=== PATIENT | male | born 1960 | race African-American/Black ===

== ENCOUNTER 2024-12-20 15:49 | Emergency (ER) | payer OTHER, SELFPAY ==
[2024-12-20] VITALS (10 sets, daily range): BP systolic 106–136; BP diastolic 69–86; PULSE 60–81; RESP 12–20; TEMP 36.4–36.7; O2SAT 92–100; BMI 23.3
--- NOTE | 2024-12-20 15:56 | EKG12_ITS ---
Test Reason : UNRESP Blood Pressure : */* mmHG Vent. Rate : 69 BPM Atrial Rate : 69 BPM P-R Int : 152 ms QRS Dur : 104 ms QT Int : 414 ms P-R-T Axes : 58 -19 29 degrees QTcB Int : 443 ms Normal sinus rhythm Possible Inferior infarct , age undetermined Abnormal ECG Confirmed by MARTIN MACHADO, ARACELI ([id number]), editorial manager WOODY MCDONALD ([id number]) on 12/21/2024 8:16:27 AM Referred By: Confirmed By: ARACELI SALAZAR MD
--- NOTE | 2024-12-20 15:56 | CT_ITS ---
PROCEDURE: BRAIN/HEAD WITHOUT CONTRAST (CTBR), 12/20/2024 REASON FOR EXAM: AMS COMPARISON: None TECHNIQUE: CT head was performed without IV contrast. Multiplanar reformats were generated. IV Contrast: None. FINDINGS: Cerebrum: No visible intracranial hemorrhage, mass, or definite acute territorial infarct. Moderate cerebral volume loss. Mild patchy bilateral supratentorial white matter abnormalities, nonspecific but compatible with chronic microvascular ischemic changes. Cerebellum/brainstem: Unremarkable. Note slight limitation due to beam hardening artifact. Ventricles/extra-axial spaces: Ventriculomegaly proportionate to the degree of volume loss.. Paranasal sinuses/mastoid air cells: Patchy mild opacification of anterior ethmoid air cells. Trace mucosal thickening in the right maxillary sinus.. Scalp/calvarium: Unremarkable. Other: Unremarkable. CT/Brain/Head without Contrast IMPRESSION: 1. No visible intracranial hemorrhage. Mild patchy supratentorial white matter abnormalities, potentially reflecting chronic microvascular ischemic changes however this is not definite in the absence of p riors to confirm stability, technically age indeterminate. If there is persistent concern, recommend MRI. 2. Additional description as above. Reading Location: [id number]
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
[2024-12-20 16:05] LABS: Allen Test Positive; Base Excess -3 mmol/L (-2 to +2); Bicarbonate 22.8 mmol/L (22-26); Blood Gas Specimen Type ART; Mode Not entered; O2 Delivery Device Cannula; PO2 114 mmHG (75-100); SITE L Radial; SO2 98 % (95-99); Total Carbon Dioxide 24 mmol/L; pCO2 43.8 mmHg (35-45); pH 7.33 (7.35-7.45)
[2024-12-20 16:09] LABS: Absolute Lymphocyte Count 2.79 X10^3/uL (0.83-4.51); Basophil# 0.02 X10^3/uL; Basophil% 0.4 % (0-1); Eosinophil# 0.18 X10^3/uL; Eosinophils% 3.2 % (0-5); Hematocrit 41.8 % (40-54); Hemoglobin 14.2 g/dL (13.0-16.5); Lymphocyte # 2.79 X10^3/ul (0.83-4.51); Lymphocyte % 49.9 % (19-41); Mean Corpuscular Hgb 30.7 pg (27.0-32.0); Mean Corpuscular Volume 90.5 fL (80-94); Mean Platelet Vol. 9.5 fl (6.2-12.0); Monocyte# 0.57 X10^3/uL; Monocyte% 10.2 % (0-10); NRBC Flagged by Analyzer 0 % (0-5); Neutrophil # 2.02 X10^3/uL (2.7-7.7); Neutrophil % 36.1 % (47-70); Platelet Count 218 K/mm3 (150-450); RBC Distribution Width CV 13.5 % (11.6-14.6); RBC Distribution Width SD 45.1 fl (35.1-43.9); Red Blood Count 4.62 M/mm3 (4.6-6.2); White Blood Count 5.6 K/mm3 (4.4-11.0)
[2024-12-20 16:18] LABS: Prothrombin Time (Protime)PT. 12.9 SECONDS (11.7-14.9)
[2024-12-20 16:23] LABS: Mucous, Urine 0 SEEN /hpf (<or=2+)
[2024-12-20 16:28] LABS: Color, Urine Yellow (Yellow); Glucose, Dipstick Normal (Normal); Ketone-Dipstick Negative (Negative); Leukocyte Esterase-Dipstick Negative /ul (Negative); Nitrite-Dipstick Negative (Negative); Occult Blood-Urine 10 /ul (Negative); Protein-Dipstick Negative (Negative); Specific Gravity, Urine 1.005 (1.002-1.030); Urine Bilirubin Dipstick Negative (Negative); Urine Clarity Clear (Clear); Urine Urobilinogen Normal (Normal)
[2024-12-20 16:37] LABS: AST(SGOT) 20 U/L (<=37); Alanine Aminotransfer ALT/SGPT 11 U/L (<=46); Albumin, Serum 3.8 g/dL (3.4-4.8); Alkaline Phosphatase 73 U/L (40-129); Anion Gap 12 (5-15); BUN 8 mg/dL (4-19); BUN/Creat Ratio 8.3 RATIO (10-20); Bilirubin, Direct 0.09 mg/dL (0.00-0.30); Calcium,Total 8.6 mg/dL (7.6-11.0); Carbon Dioxide 21.1 mmol/L (21.0-32.0); Chloride 103 mmol/L (98-108); Creatinine, Serum 0.94 mg/dL (0.70-1.20); EST Glomerular Filtration Rate 88 (>60); Estimated Creatinine Clearance 80.26 ml/min (50-250); Globulin 3.4 g/dL (2.2-4.2); Glucose 102 mg/dL (70-99); Lactic Acid 2.1 mmol/L (0.0-2.0); Lipase 53 U/L (13-75); Magnesium 2.4 mg/dL (1.5-2.2); Potassium 3.6 mmol/L (3.3-5.1); Protein, Total 7.1 g/dL (5.9-8.4); Sodium Level 136 mmol/L (133-145); Troponin T High Sensitivity 6 ng/L (<=22)
--- NOTE | 2024-12-20 16:40 | RAD_ITS ---
PROCEDURE: CHEST 1 VIEW (PORTABLE) (RADCXPA_P), 12/20/2024 REASON FOR EXAM: UNRESPONSIVE TECHNIQUE: PA and lateral views of the chest were obtained. COMPARISON: None FINDINGS: Heart: Unremarkable. Mediastinum: Mild central vascular prominence. Lungs/pleura: Hypoinflation with vascular crowding. Suspect mild airspace disease in the right lung base. Trace basilar interstitial prominence. No sizeable pleural effusion or visible pneumothorax. Bones: Suspect demineralization. Lines and support devices: None. RAD/Chest 1 View (Portable) IMPRESSION: 1. Limited hypoinflated exam. Mild right basilar airspace disease, atelectasis /scarring versus mild pneumonia. Follow-up to radiographic resolution. 2. Trace basilar interstitial prominence may reflect minimal edema/pneumonitis or a chronic interstitial abnormality in the absence of priors. 3. Additional description as above. Reading Location: [id number]
[2024-12-20 16:56] LABS: Amphetamine Urine NEGATIVE (<1000 ng/mL); Barbiturate Urine NEGATIVE (< 200 ng/mL); Benzodiazepine Urine NEGATIVE (< 200 ng/mL); Buprenorphine Urine NEGATIVE (< 200 ng/mL); Cocaine Urine NEGATIVE (< 300 ng/mL); Fentanyl, Urine NEGATIVE; Methadone Urine NEGATIVE (< 300 ng/mL); Opiates Urine NEGATIVE (< 300 ng/mL); Oxycodone, Urine NEGATIVE (< 100 ng/mL); PCP Urine NEGATIVE (< 25 ng/mL); THC Urine NEGATIVE (< 50 ng/mL)
[2024-12-20 17:30] LABS: Bacteria RARE /hpf (None Seen); Red Blood Cells-Urine 0-5 SEEN /hpf (0-5); Squamous Epithelial Cells - UA 0-5 SEEN /hpf (0-5); Transitional Epithelial - Ur 0-5 SEEN /hpf (0-5); White Blood Cells 0-5 SEEN /hpf (0-5)
--- NOTE | 2024-12-20 19:27 | ED.RN ---
Walked into room to pt standing at side of bed between the siderail and the bed urinating on the floor.
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
--- NOTE | 2024-12-21 00:46 | ED.RN ---
Assessment at time of discharge.
== END 2024-12-21 00:47 | disposition home or self-care (01) ==
PROVIDERS: Emergency Provider Emergency Medicine; Visit Provider Emergency Medicine
DX: F10.129 Alcohol abuse with intoxication, unspecified (principal); Z59.00 Homelessness unspecified; R40.4 Transient alteration of awareness
CPT/HCPCS: 36600; 70450; 71045; 80048; 80076; 80307; 81001; 82077; 82803; 83605; 83690; 83735; 84484; 85025; 85610; 85730; 93005; 99285; P9612; A4216

== ENCOUNTER 2025-05-10 15:34 | Emergency (ER) | payer OTHER, SELFPAY ==
[2025-05-10 15:34] VITALS: BP 113/64; PULSE 67; RESP 16; O2SAT 98
[2025-05-10 15:36] VITALS: BP 111/70; PULSE 73; RESP 18; TEMP 36.8; O2SAT 97; BMI 23.6
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
--- NOTE | 2025-05-10 15:49 | CT_ITS ---
PROCEDURE: BRAIN/HEAD WITHOUT CONTRAST 05/10/2025 REASON FOR EXAM: ?HEAD TRAUMA TECHNIQUE: BRAIN/HEAD WITHOUT CONTRAST Coronal and Sagittal reconstruction series were provided. One or more dose reduction techniques were used (e.g., Automated exposure control, adjustment of the mA and/or kV according to patient size, use of iterative reconstruction technique. RADIATION DOSE SUMMARY: CTDlvol: 44.99 mGy DLP: 829.85 mGycm COMPARISON: CT head December 20, 2024. FINDINGS: Brain: Extensive low density in the deep cerebral white matter most likely represents advanced chronic small vessel ischemic disease. No acute intracranial hemorrhage. No mass-effect or midline shift. CSF Spaces: Moderate generalized cerebral atrophy Sinuses/Mastoids: Clear Bones: No acute bony abnormalities. CT/Brain/Head without Contrast IMPRESSION: No acute intracranial abnormalities. Reading Location: [facility]
--- NOTE | 2025-05-10 15:50 | EKG12_ITS ---
Test Reason : FALL Blood Pressure : */* mmHG Vent. Rate : 62 BPM Atrial Rate : 62 BPM P-R Int : 140 ms QRS Dur : 100 ms QT Int : 430 ms P-R-T Axes : 36 -17 -1 degrees QTcB Int : 436 ms Normal sinus rhythm Possible Inferior infarct , age undetermined Abnormal ECG Confirmed by MARTIN MACHADO, AARCELI ([id number]), editor managing newspaper RIZWANA SUAREZ ([id number]) on 05/11/2025 8:34:50 AM Referred By: Confirmed By: ARACELI SALAZAR MD
[2025-05-10] MEDS: 0.9% Normal Saline (1000mL) 1,000 ML 1000 ML IV (15:53)
[2025-05-10 16:10] LABS: Hematocrit 39.8 % (40-54); Hemoglobin 13.4 g/dL (13.0-16.5); Immature Granulocytes Count 0.010 X10^3/uL (0.0-0.0); Mean Corp Hgb Conc 33.7 g/dL (32-36); Mean Corpuscular Volume 91.7 fL (80-94); Mean Platelet Vol. 9.8 fl (6.2-12.0); NRBC Flagged by Analyzer 0 % (0-5); Platelet Count 209 K/mm3 (150-450); RBC Distribution Width CV 13.9 % (11.6-14.6); RBC Distribution Width SD 47.6 fl (35.1-43.9); Red Blood Count 4.34 M/mm3 (4.6-6.2); White Blood Count 5.4 K/mm3 (4.4-11.0)
[2025-05-10 16:34] VITALS: BP 102/64; PULSE 64; RESP 16; O2SAT 97
[2025-05-10 16:40] LABS: AST(SGOT) 20 U/L (<=37); Alanine Aminotransfer ALT/SGPT 8 U/L (<=46); Albumin, Serum 3.4 g/dL (3.4-4.8); Alkaline Phosphatase 60 U/L (40-129); Anion Gap 14 (5-15); BUN 8 mg/dL (4-19); BUN/Creat Ratio 9.9 RATIO (10-20); Calcium,Total 8.5 mg/dL (7.6-11.0); Carbon Dioxide 17.9 mmol/L (21.0-32.0); Chloride 104 mmol/L (98-108); Estimated Creatinine Clearance 94.95 ml/min (50-250); Globulin 3.2 g/dL (2.2-4.2); Glucose 86 mg/dL (70-99); Potassium 3.8 mmol/L (3.3-5.1)
[2025-05-10 17:00] VITALS: BP 126/72; PULSE 64; RESP 16; O2SAT 100
--- NOTE | 2025-05-10 17:44 | CM.ED ---
Social Work SW attempted to meet with patient, patient unable to maintain a conversation. Patient was able to tell SW that he lives with his daughter and that his daughters name is Svetlana. Patient was unable to tell FRANCOIS Luis phone number or address. Patient will attempt conversation again at a later time. Evie Bonilla, PUBLIC AFFAIRS SPECIALIST, RESOURCING CONSULTANT
[2025-05-10 18:00] VITALS: BP 102/59; PULSE 66; RESP 16; O2SAT 99
--- NOTE | 2025-05-10 19:04 | ED.RN ---
PT WALKED OUT OF ER ROOM. ASKED TO LEAVE. DR. SUTTON ASSESSED PT AND APPROVED PT. TO LEAVE. PT DID NOT WANT HIS D/C PAPERS. AMBULATED OUT OF DEPT WITHOUT TROUBLE.
--- OUTSIDE RECORDS SUMMARY | 2025-05-10 19:42 | XMS RPT_ITS | CCD ---
Author Organization [facility] ion Partnership [facility] Care Team Providers Care Schedule Manager Name Role Phone TREVOR BHATT Attending Unavailable Unavailable Primary Care Provider VIN Aburto Referring [facility], [place] Primary Care Unavailable Kale Kitchen Attending Unavailable Dr. Kale Kitchen DO Emergency Provider [phone] [facility], [place] Primary Care Provider [place], [place] Primary Care Provider [facility] Dr. Karel Fuentes DO Emergency Provider Allergies Allergy Classification Reported Allergen(s) Allergy Type Date of Onset Reaction(s) Facility (1 source) Unable to Assess Drug allergy (disorder) 12-20-2024 [facility] Repository Problems Problem Classification Problem Date Documented Da te Episodic/Chronic Alcohol-related disorders (2 sources) Alcohol intoxication; Translations: [Alcohol use, unspecified with intoxication, unspecified] 12-20-2024 Episodic Residual codes; unclassified (1 source) Transient alteration of awareness; Translations: [Transient alteration of awareness] Onset: 12-29-2024 Episodic Residual codes; unclassified (2 sources) Unresponsive ; Translations: [Transient alteration of awareness] 12-20-2024 Episodic Unclassified (1 source) for help with your alcohol problem Results Test Name Value Interpretation Reference Range Facility Absolute lymphocyte countOrd ered By: Karel Fuentes on 05-10-2025 Lymphocytes Auto (Unsp spec) [#/Vol] 2.29 10*3/uL 0.83-4.51 [facility] Absolute neutrophil countOrd ered By: Karel Fuentes on 05-10-2025 Neutrophils (Bld) [#/Vol] 2.3 10*3/uL 2.0-7.7 [facility] Anion gap in Serum or Plasma Ordered By: Karel Fuentes on 05-10-2025 Anion gap [Moles/Vol] 14 mmol/L 5-[address] [facility] Automated lymphocyte count a s percentage of total leukocytesOrdered By: Karel Fuentes on 05-10-2025 Lymphocytes/100 WBC Auto (Unsp spec) 42.8 % High 19-41 [facility] BUN/creatinine ratioOrdered By: Karel Fuentes on 05-10-2025 Urea nitrogen/Creatinine [Mass ratio] 9.9 mg/mg Low 10-20 [facility] Basophil percentageOrdered B y: Karel Fuentes on 05-10-2025 Basophils/100 WBC (Bld) 0.6 % 0-1 [facility] Bilirubin, totalOrdered By: Karel Fuentes on 05-10-2025 Bilirubin [Mass/Vol] 0.30 mg/dL 0.00-1.30 [facility] Carbon dioxide, total [Moles /volume] in Central venous bloodOrdered By: Karel Fuentes on 05-10-2025 CO2 [Moles/Vol] 17.9 mmol/L Low 21.0-32.0 [facility] Chloride assayOrdered By: delmy Fuentes on 05-10-2025 Chloride [Moles/Vol] 104 mmol/L 98-108 [facility] Eosinophil percentageOrdered By: Karel Fuentes on 05-10-2025 Eosinophils/100 WBC (Bld) 3.4 % 0-5 [facility] Erythrocyte distribution wid th ratioOrdered By: Karel Fuentes on 05-10-2025 Erythrocyte distribution width (RBC) [Ratio] 13.9 % 11.6-14.6 [facility] Erythrocyte distribution wid th standard deviationOrdered By: Karel Fuentes on 05-10-2025 Erythrocyte distribution width (RBC) [Ratio] 47.6 fl High 35.1-43.9 [facility] Glomerular filtration rate ( GFR) estimation/1.73 sq m using serum, plasma, or whole bOrdered By: Karel Fuentes on 05-10-2025 GFR/1.73 sq M.predicted among non-blacks MDRD (S/P/Bld) [Vol rate/Area] 96 mL/min/{1.73_m2} >60 [facility] Comment on above: mL/min/1.73m2 CKD-EP I Creatinine Equation (2020) Hematocrit Auto (Bld) [Volum e fraction]Ordered By: Karel Fuentes on 05-10-2025 Hematocrit (Bld) [Volume fraction] 39.8 % Low 40-54 [facility] Hemoglobin measurementOrdere d By: Karel Fuentes on 05-10-2025 Hemoglobin (Bld) [Mass/Vol] 13.4 g/dL 13.0-16.5 [facility] Immature granulocytes/100 WB C Auto (Bld)Ordered By: Karel Fuentes on 05-10-2025 Immature granulocytes/100 WBC (Bld) 0.200 % 0.0-0.9 [facility] Comment on above: IG% - Immature Granu locytes (promyelocytes, myelocytes and metamyelocytes) > 1% indicates that a LEFT SHIFT is Present. Laboratory - Chemistry and C hemistry - challengeOrdered By: Karel Fuentes on 05-10-2025 AST [Catalytic activity/Vol] 20 U/L <38 [facility] MCV (mean corpuscular volume ) determinationOrdered By: Karel Fuentes on 05-10-2025 MCV (RBC) [Entitic vol] 91.7 fL 80-94 [facility] Mean corpuscular hemoglobin (MCH) determinationOrdered By: Karel Fuentes on 05-10-2025 MCH (RBC) [Entitic mass] 30.9 pg 27.0-32.0 [facility] Mean corpuscular hemoglobin concentration (MCHC) determinationOrdered By: Karel Fuentes on 05-10-2025 MCHC (RBC) [Mass/Vol] 33.7 g/dL 32-[address] [facility] Mean platelet volume determi nationOrdered By: Karle Fuentes on 05-10-2025 Platelet mean volume (Bld) [Entitic vol] 9.8 fL 6.2-12.0 [facility] Monocyte percentageOrdered B y: Karel Fuentes on 05-10-2025 Monocytes/100 WBC (Bld) 10.8 % High 0-10 [facility] Neutrophil percentageOrdered By: Karel Fuentes on 05-10-2025 Neutrophils/100 WBC (Bld) 42.2 % Low 47-70 [facility] Nucleated red blood cell per centageOrdered By: Karel Fuentes on 05-10-2025 Nucleated RBC/100 WBC (Bld) [Ratio] 0 % 0-5 [facility] Platelet countOrdered By: Antonio Fuentes on 05-10-2025 Platelets (Bld) [#/Vol] 209 10*3/uL 150-450 [facility] Potassium measurement (mass/ volume)Ordered By: Karel Fuentes on 05-10-2025 Potassium (Unsp spec) [Mass/Vol] 3.8 mmol/L 3.3-5.1 [facility] RBC Auto (Bld) [#/Vol]Ordere d By: Karel Fuentes on 05-10-2025 RBC (Bld) [#/Vol] 4.34 10*6/uL Low 4.6-6.2 [facility] Serum creatinine measurement (mass/volume)Ordered By: Karel Fuentes on 05-10-2025 Creatinine [Mass/Vol] 0.84 mg/dL 0.70-1.[address] [facility] Serum globulin measurementOr dered By: Karel Fuentes on 05-10-2025 Globulin (S) [Mass/Vol] 3.2 g/dL 2.2-4.2 [facility] Serum glucose measurement (m ass/volume)Ordered By: Karel Fuentes on 05-10-2025 Glucose [Mass/Vol] 86 mg/dL 70-99 [facility] Serum or plasma alanine travis otransferase (ALT) measurementOrdered By: Karel Fuentes on 05-10-2025 ALT [Catalytic activity/Vol] 8 U/L <47 [facility] Serum or plasma albumin juanito urement (mass/volume)Ordered By: Karel Fuentes on 05-10-2025 Albumin [Mass/Vol] 3.4 g/dL 3.4-4.8 [facility] Serum or plasma albumin/glob ulin mass ratioOrdered By: Karel Fuentes on 05-10-2025 Albumin/Globulin [Mass ratio] 1.1 {ratio} 0.9-2.4 [facility] Serum or plasma alkaline phoenix sphatase measurementOrdered By: Karel Fuentes on 05-10-2025 ALP [Catalytic activity/Vol] 60 U/L 40-129 [facility] Serum or plasma calcium juanito urement (mass/volume)Ordered By: Karel Fuentes on 05-10-2025 Calcium [Mass/Vol] 8.5 mg/dL 7.6-11.0 [facility] Serum or plasma urea nitroge n measurement (mass/volume)Ordered By: Karel Fuentes on 05-10-2025 Urea nitrogen [Mass/Vol] 8 mg/dL 4-19 [facility] Sodium levelOrdered By: Nelsy Fuentes on 05-10-2025 Sodium [Moles/Vol] 135 mmol/L 133-145 [facility] Total proteinOrdered By: Wilbert Fuentes on 05-10-2025 Protein [Mass/Vol] 6.6 g/dL 5.9-8.4 [facility] White blood cell (WBC) count Ordered By: Karel Fuentes on 05-10-2025 WBC (Bld) [#/Vol] 5.4 10*3/uL 4.4-11.0 [facility] 12 Lead EKGon 12-20-2024 12 Lead EKG [facility] Cardiovascular Services [address] [place] [address] 12 Lead EKG 12/20/24 1604 MR#: [id number] Acct: [id number] Name: MERA PENA Rep #: [id number] : 1960 64 From: Gurdeep Francisco MD Attending Dr: Status: DEP ER Ordering Dr: Kale Kitchen DO Date: 12/20/24 Location: ED Sex: M AA Admitted: Test Reason : UNRESP Blood Pressure : */* mmHG Vent. Rate : 69 BPM Atrial Rate : 69 BPM P-R Int : 152 ms QRS Dur : 104 ms QT Int : 414 ms P-R-T Axes : 58 -19 29 degrees QTcB Int : 443 ms Normal sinus rhythm Possible Inferior infarct , age undetermined Abnormal ECG Confirmed by MARTIN MACHADO, GURDEEP ([id number]), newspaper copy editor WOODY MCDONALD ([id number]) on 12/21/2024 8:16:27 AM Referred By: Confirmed By: GURDEEP FRANCISCO MD 12/21/24 0816 Date Gurdeep Francisco MD CC: Dr. Kale Kitchen, DO; [facility] Signed Normal [facility] Absolute neutrophil countOrd ered By: Kale Kitchen on 12-20-2024 Neutrophils (Bld) [#/Vol] 2.0 10*3/uL 2.0-7.7 [facility] Alcohol, Blood (Medical)-Ser umon 12-20-2024 SERUM ETOH 256.0 mg/dL High <=10.0 [facility] Comment on above: Result Comment: This test is for medical purposes only. The legal definition of intoxication varies according to local law. Performed By: #### L 501.9100 ####[facility] [address] [facility] [place], [place], [id number] SERUM ETOH 401.0 mg/dL Invalid Interpretation Code <=10.0 [facility] Comment on above: Result Comment: Crit ical Result(s) Called [facility] at: 1706 by: FRAN??Results read back by same. This test is for medical purposes only. The legal definition of intoxication varies according to local law. Performed By: #### L 501.5200, L500.2500, L300.4310, L501.4021, L300.3900, L500.3400, L503.6005, L501.2450, L501.9100, L505.5000, L100.0100 ####[facility] [address] [place], [place], [id number] Amphetamines Screen method > 1000 ng/mL Ql (U)Ordered By: Kale Kitchen on 12-20-2024 Amphetamines Ql (U) Negative <1000 ng/mL [facility] Urine Barbiturates Screen Negative < 200 ng/mL [facility] Anion gap in Serum or Plasma Ordered By: Kale Kitchen on 12-20-2024 Anion gap [Moles/Vol] 12 mmol/L 5- [facility] Arterial patency Wrist arter y --pre arterial punctureOrdered By: Kale Kitchen on 12-20-2024 Jeramy Test Positive [facility] BUN/creatinine ratioOrdered By: Kale Kitchen on 12-20-2024 Urea nitrogen/Creatinine [Mass ratio] 8.3 mg/mg Low 10- [facility] Bacteria LM.HPF (Urine sed) [#/Area]Ordered By: Kale Kitchen on 12-20-2024 Urine Bacteria RARE /hpf None Seen [facility] Base excess Calc (BldV) [Mol es/Vol]Ordered By: Kale Kitchen on 12-20-2024 Blood Gas Base Excess -3 mmol/L Low -2-[address] [facility] Basic Metabolic Profile (BMP )on 12-20-2024 BUN/CRE 8.3 RATIO Low 07-25 [facility] Comment on above: Performed By: #### L 501.5200, L500.2500, L300.4310, L501.4021, L300.3900, L500.3400, L503.6005, L501.2450, L501.9100, L505.5000, L100.0100 #### [facility] [address] [place], [place], [id number] ECRCL 80.26 ml/min Normal 50-250 [facility] Comment on above: Performed By: #### L 501.5200, L500.2500, L300.4310, L501.4021, L300.3900, L500.3400, L503.6005, L501.2450, L501.9100, L505.5000, L100.0100 #### [facility] [address] [place], [place], [id number] GAP 12 Normal - [facility] Comment on above: Performed By: #### L 501.5200, L500.2500, L300.4310, L501.4021, L300.3900, L500.3400, L503.6005, L501.2450, L501.9100, L505.5000, L100.0100 #### [facility] [address] [place], [place], [id number] GFR/1.73 sq M.predicted among non-blacks MDRD (S/P/Bld) [Vol rate/Area] 88 mL/min/{1.73_m2} Normal >60 [facility] Comment on above: Result Comment: mL/m in/1.73m2 CKD-EPI Creatinine Equation (2020) Performed By: #### L 501.5200, L500.2500, L300.4310, L501.4021, L300.3900, L500.3400, L503.6005, L501.2450, L501.9100, L505.5000, L100.0100 #### [facility] [address] [place], [address] Basic Metabolic Profile (BMP )Ordered By: Kale Kitchen on 12-20-2024 Calcium [Mass/Vol] 8.6 mg/dL Normal 7.6-11.0 [facility] Comment on above: Performed By: #### L 501.5200, L500.2500, L300.4310, L501.4021, L300.3900, L500.3400, L503.6005, L501.2450, L501.9100, L505.5000, L100.0100 #### [facility] [address] [place], [place], [id number] Chloride [Moles/Vol] 103 mmol/L Normal 98-108 [facility] Comment on above: Performed By: #### L 501.5200, L500.2500, L300.4310, L501.4021, L300.3900, L500.3400, L503.6005, L501.2450, L501.9100, L505.5000, L100.0100 #### [facility] [address] [place], [address] CO2 [Moles/Vol] 21.1 mmol/L Normal 21.0-32.0 [facility] Comment on above: Performed By: #### L 501.5200, L500.2500, L300.4310, L501.4021, L300.3900, L500.3400, L503.6005, L501.2450, L501.9100, L505.5000, L100.0100 #### [facility] [address] [place], [address] Creatinine [Mass/Vol] 0.94 mg/dL Normal 0.70-1.[address] [facility] Comment on above: Performed By: #### L 501.5200, L500.2500, L300.4310, L501.4021, L300.3900, L500.3400, L503.6005, L501.2450, L501.9100, L505.5000, L100.0100 #### [facility] [address] [place], [address] Glucose [Mass/Vol] 102 mg/dL High 70-99 [facility] Comment on above: Performed By: #### L 501.5200, L500.2500, L300.4310, L501.4021, L300.3900, L500.3400, L503.6005, L501.2450, L501.9100, L505.5000, L100.0100 #### [facility] [address] [place], [address] Potassium [Moles/Vol] 3.6 mmol/L Normal 3.3-5.[address] [facility] Comment on above: Performed By: #### L 501.5200, L500.2500, L300.4310, L501.4021, L300.3900, L500.3400, L503.6005, L501.2450, L501.9100, L505.5000, L100.0100 #### [facility] [address] [place], [address] Sodium [Moles/Vol] 136 mmol/L Normal 133-145 [facility] Comment on above: Performed By: #### L 501.5200, L500.2500, L300.4310, L501.4021, L300.3900, L500.3400, L503.6005, L501.2450, L501.9100, L505.5000, L100.0100 #### [facility] [address] [place], [address] Urea nitrogen [Mass/Vol] 8 mg/dL Normal 4-19 [facility] Comment on above: Performed By: #### L 501.5200, L500.2500, L300.4310, L501.4021, L300.3900, L500.3400, L503.6005, L501.2450, L501.9100, L505.5000, L100.0100 #### [facility] [address] [place], [address] Bilirubin Test strip Ql (U)O rdered By: Kale Kitchen on 12-20-2024 Bilirubin Ql (U) Negative Negative [facility] Positive Normal [facility] Comment on above: Performed By: #### L 9000.0800 #### [facility] [address] [place], [address] Base excess Calc (Bld) [Moles/Vol] -3 mmol/L Low -2 to +2 [facility] Comment on above: Performed By: #### L 9000.0800 #### [facility] [address] [place], [address] Blood Gas Type ART Normal [facility] Comment on above: Performed By: #### L 9000.0800 #### [facility] [address] [place], [address] CO2 [Moles/Vol] 24 mmol/L Normal [facility] Comment on above: Performed By: #### L 9000.0800 #### [facility] [address] [place], [address] FI02 2.0 Normal [facility] Comment on above: Performed By: #### L 9000.0800 #### [facility] [address] [place], [address] HCO3 (Bld) [Moles/Vol] 22.8 mmol/L Normal 22-26 [facility] Comment on above: Performed By: #### L 9000.0800 #### [facility] [address] [place], [address] Mode Not entered Normal [facility] Comment on above: Performed By: #### L 9000.0800 #### [facility] [address] [place], [address] O2 Delivery Dev Cannula Normal [facility] Comment on above: Performed By: #### L 9000.0800 #### [facility] [address] [place], [address] pCO2 43.8 mmHg Normal 35-45 [facility] Comment on above: Performed By: #### L 9000.0800 #### [facility] [address] [place], [address] pH (Bld) 7.33 [pH] Low 7.35-7.45 [facility] Comment on above: Performed By: #### L 9000.0800 #### [facility] [address] [place], [address] PO2 114 mmHG High 75-100 [facility] Comment on above: Performed By: #### L 9000.0800 #### [facility] [address] [place], [address] SITE L Radial Normal [facility] Comment on above: Performed By: #### L 9000.0800 #### [facility] [address] [place], [address] SO2 98 Normal 95-99 [facility] Comment on above: Performed By: #### L 9000.0800 #### [facility] [address] [place], [address] Blood bicarbonate measuremen tOrdered By: Kale Kitchen on 12-20-2024 Blood Gas Bicarbonate Actual 22.8 mmol/L [facility] Brain/Head without Contrasto n 12-20-2024 Brain/Head without Contrast [facility] Imaging Services [address] [place] [address] Brain/Head without Contrast MR#: [id number] Acct: [id number] Name: MERA PENA Rep #: [id number] : 1960 M 64 From: Hira Rosado MD PCP: Care Physician,No Primary Status: REG ER Study: Brain/Head without Contrast Date of Exam: 12/04 04/29 Exam# [id number] Ordering Dr: Kale Kitchen DO PROCEDURE: BRAIN/HEAD WITHOUT CONTRAST (CTBR), 12/20/2024 REASON FOR EXAM: AMS COMPARISON: None TECHNIQUE: CT head was performed without IV contrast. Multiplanar reformats were generated. IV Contrast: None. FINDINGS: Cerebrum: No visible intracranial hemorrhage, mass, or definite acute territorial infarct. Moderate cerebral volume loss. Mild patchy bilateral supratentorial white matter abnormalities, nonspecific but compatible with chronic microvascular ischemic changes. Cerebellum/brainstem : Unremarkable. Note slight limitation due to beam hardening artifact. Ventricles/extra-axi al spaces: Ventriculomegaly proportionate to the degree of volume loss.. Paranasal sinuses/mastoid air cells: Patchy mild opacification of anterior ethmoid air cells. Trace mucosal thickening in the right maxillary sinus.. Scalp/calvarium: Unremarkable. Other: Unremarkable. CT/Brain/Head without Contrast IMPRESSION: 1. No visible intracranial hemorrhage. Mild patchy supratentorial white matter abnormalities, potentially reflecting chronic microvascular ischemic changes however this is not definite in the absence of priors to confirm stability, technically age indeterminate. If there is persistent concern, recommend MRI. 2. Additional description as above. Reading Location: [facility] CC: Dr. Kale Kitchen, DO; No Primary Care Physician Supervisor Plasma: Signed Normal [facility] CBC W/Diff, Automatedon 12-04 Absolute Lymph 2.79 X10 3/uL Normal 0.83-4.51 [facility] Comment on above: Performed By: #### L 501.5200, L500.2500, L300.4310, L501.4021, L300.3900, L500.3400, L503.6005, L501.2450, L501.9100, L505.5000, L100.0100 #### [facility] [address] [place], [place], [id number] Absolute Neut 2.0 X10 3/uL Normal 2.0-7.7 [facility] Comment on above: Performed By: #### L 501.5200, L500.2500, L300.4310, L501.4021, L300.3900, L500.3400, L503.6005, L501.2450, L501.9100, L505.5000, L100.0100 #### [facility] [address] [facility] [place], [place], [id number] IG% 0.200 Normal 0.0-0.9 [facility] Comment on above: Result Comment: IG% - Immature Granulocytes (promyelocytes, myelocytes and metamyelocytes) > 1% indicates that a LEFT SHIFT is Present. Performed By: #### L 501.5200, L500.2500, L300.4310, L501.4021, L300.3900, L500.3400, L503.6005, L501.2450, L501.9100, L505.5000, L100.0100 #### [facility] [address] [place], [address] Nucleated RBC (Bld) [#/Vol] 0 10*3/uL Normal 0-5 [facility] Comment on above: Performed By: #### L 501.5200, L500.2500, L300.4310, L501.4021, L300.3900, L500.3400, L503.6005, L501.2450, L501.9100, L505.5000, L100.0100 #### [facility] [address] [place], [address] RDW SD 45.1 fl High 35.1-43.9 [facility] Comment on above: Performed By: #### L 501.5200, L500.2500, L300.4310, L501.4021, L300.3900, L500.3400, L503.6005, L501.2450, L501.9100, L505.5000, L100.0100 #### [facility] [address] [place], [address] CBC W/Diff, AutomatedOrdered By: Kale Kitchen on 12-20-2024 Basophils/100 WBC (Bld) 0.4 % Normal 0-1 [facility] Comment on above: Performed By: #### L 501.5200, L500.2500, L300.4310, L501.4021, L300.3900, L500.3400, L503.6005, L501.2450, L501.9100, L505.5000, L100.0100 #### [facility] [address] [place], [place], [id number] (964) Eosinophils/100 WBC (Bld) 3.2 % Normal 0-5 [facility] Comment on above: Performed By: #### L 501.5200, L500.2500, L300.4310, L501.4021, L300.3900, L500.3400, L503.6005, L501.2450, L501.9100, L505.5000, L100.0100 #### [facility] [address] [facility] [place], [address] ( Erythrocyte distribution width (RBC) [Ratio] 13.5 % Normal 11.6-14.6 [facility] Comment on above: Performed By: #### L 501.5200, L500.2500, L300.4310, L501.4021, L300.3900, L500.3400, L503.6005, L501.2450, L501.9100, L505.5000, L100.0100 #### [facility] [address] [facility] [place], [address] Hematocrit (Bld) [Volume fraction] 41.8 % Normal 40-54 [facility] Comment on above: Performed By: #### L 501.5200, L500.2500, L300.4310, L501.4021, L300.3900, L500.3400, L503.6005, L501.2450, L501.9100, L505.5000, L100.0100 #### [facility] [address] [place], [address] ( Hemoglobin (Bld) [Mass/Vol] 14.2 g/dL Normal 13.0-16.5 [facility] Comment on above: Performed By: #### L 501.5200, L500.2500, L300.4310, L501.4021, L300.3900, L500.3400, L503.6005, L501.2450, L501.9100, L505.5000, L100.0100 #### [facility] [address] [facility] [place], [address] Lymphocytes/100 WBC (Bld) 49.9 % High 19-41 [facility] Comment on above: Performed By: #### L 501.5200, L500.2500, L300.4310, L501.4021, L300.3900, L500.3400, L503.6005, L501.2450, L501.9100, L505.5000, L100.0100 #### [facility] [address] [place], [address] MCH (RBC) [Entitic mass] 30.7 pg Normal 27.0-32.0 [facility] Comment on above: Performed By: #### L 501.5200, L500.2500, L300.4310, L501.4021, L300.3900, L500.3400, L503.6005, L501.2450, L501.9100, L505.5000, L100.0100 #### [facility] [address] [place], [address] MCHC (RBC) [Mass/Vol] 34.0 g/dL Normal 32-[address] [facility] Comment on above: Performed By: #### L 501.5200, L500.2500, L300.4310, L501.4021, L300.3900, L500.3400, L503.6005, L501.2450, L501.9100, L505.5000, L100.0100 #### [facility] [address] [place], [address] MCV (RBC) [Entitic vol] 90.5 fL Normal 80-94 [facility] Comment on above: Performed By: #### L 501.5200, L500.2500, L300.4310, L501.4021, L300.3900, L500.3400, L503.6005, L501.2450, L501.9100, L505.5000, L100.0100 #### [facility] [address] [place], [address] Monocytes/100 WBC (Bld) 10.2 % High 0-10 [facility] Comment on above: Performed By: #### L 501.5200, L500.2500, L300.4310, L501.4021, L300.3900, L500.3400, L503.6005, L501.2450, L501.9100, L505.5000, L100.0100 #### [facility] [address] [place], [address] Neutrophils/100 WBC (Bld) 36.1 % Low 47-70 [facility] Comment on above: Performed By: #### L 501.5200, L500.2500, L300.4310, L501.4021, L300.3900, L500.3400, L503.6005, L501.2450, L501.9100, L505.5000, L100.0100 #### [facility] [address] [place], [address] Platelet mean volume (Bld) [Entitic vol] 9.5 fL Normal 6.2-12.0 [facility] Comment on above: Performed By: #### L 501.5200, L500.2500, L300.4310, L501.4021, L300.3900, L500.3400, L503.6005, L501.2450, L501.9100, L505.5000, L100.0100 #### [facility] [address] [place], [address] Platelets (Bld) [#/Vol] 218 10*3/uL Normal 150-450 [facility] Comment on above: Performed By: #### L 501.5200, L500.2500, L300.4310, L501.4021, L300.3900, L500.3400, L503.6005, L501.2450, L501.9100, L505.5000, L100.0100 #### [facility] [address] [place], [address] RBC (Bld) [#/Vol] 4.62 10*6/uL Normal 4.6-6.2 [facility] Comment on above: Performed By: #### L 501.5200, L500.2500, L300.4310, L501.4021, L300.3900, L500.3400, L503.6005, L501.2450, L501.9100, L505.5000, L100.0100 #### [facility] [address] [facility] [place], [address] WBC (Bld) [#/Vol] 5.6 10*3/uL Normal 4.4-11.0 [facility] Comment on above: Performed By: #### L 501.5200, L500.2500, L300.4310, L501.4021, L300.3900, L500.3400, L503.6005, L501.2450, L501.9100, L505.5000, L100.0100 #### [facility] [address] [place], [place], [address] Chest 1 View (Portable)on Chest 1 View (Portable) [facility] Imaging Services [address] [place], [place] [address] Chest 1 View (Portable) MR#: [id number] Acct: [id number] Name: MERA PENA Rep #: [id number] : 1960 M 64 From: Hira Rosado MD PCP: Care Physician,No Primary Status: [facility] Study: Chest 1 View (Portable) Date of Exam: 12/20/24 Exam# [id number] Ordering Dr: Kale Kitchen DO PROCEDURE: CHEST 1 VIEW (PORTABLE) (RADCXPA_P), 12/20/2024 REASON FOR EXAM: UNRESPONSIVE TECHNIQUE: PA and lateral views of the chest were obtained. COMPARISON: None FINDINGS: Heart: Unremarkable. Mediastinum: Mild central vascular prominence. Lungs/pleura: Hypoinflation with vascular crowding. Suspect mild airspace disease in the right lung base. Trace basilar interstitial prominence. No sizeable pleural effusion or visible pneumothorax. Bones: Suspect demineralization. Lines and support devices: None. RAD/Chest 1 View (Portable) IMPRESSION: 1. Limited hypoinflated exam. Mild right basilar airspace disease, atelectasis/scarring versus mild pneumonia. Follow-up to radiographic resolution. 2. Trace basilar interstitial prominence may reflect minimal edema/pneumonitis or a chronic interstitial abnormality in the absence of priors. 3. Additional description as above. Reading Location: [id number] CC: Dr. Kale Kitchen DO; No Primary Care Physician Supervisor Plasma: Signed Normal [facility] Determination of fraction of inspired oxygenOrdered By: Kale Kitchen on 12-20-2024 Blood Gas Oxygen Percent 2.0 [facility] Emergency Department Summary on 12-20-2024 Emergency Department Summary [facility] Medical Records Department [address] [place] [address] Emergency Department Summary 12/20/24 MR#: [id number] Acct: [id number] Name: BECKY PALACIOSHODAMARY Rep #: [id number] : 1960 64 From: Kale Kitchne DO PCP: [facility] Status:REG ER Location: ED HPI History of Present Illness Chief Complaint: Unresponsive Informant: EMS Narrative Narrative: Unresponsive unknown male brought to the emergency department by EMS. Patient was found on the ground outside of a local liquor store. Prehospital EKG shows a sinus rhythm. EMS notes that he was unresponsive to sternal rub for them. They attempted Narcan with no change in mental status. He has no wallet with him. Police on scene did not know the individual's name. EMS notes no outward signs of trauma. PFSH PFSH Medical History unable to obtain unable to obtain Allergy/AdvReac Type Severity Reaction Status Date / Time Unable to Assess Allergy Verified 12/20/24 15:50 Family History unable to obtain unable to obtain Surgical History unable to obtain unable to obtain Social History Smoking Status: Unknown if ever smoked Homelessness:: Unspecified ROS ROS ED Review of Systems ROS Unobtainable: due to mental status EXAM Physical Exam Const Vital Signs: 12/20/24 15:51 12/20/24 15:55 12/20/24 16:50 Temperature 98.1 F Temperature Source Temporal Pulse Rate 75 Respiratory Rate 12 Respiratory Effort Normal Respiratory Pattern Normal Blood Pressure 136/85 H 131/86 H Blood Pressure Mean 102 101 Pulse Ox 99 Oxygen Delivery Method 12/20/24 17:00 12/20/24 17:30 Temperature 97.6 F L Temperature Source Temporal Pulse Rate 81 62 Respiratory Rate 17 18 Respiratory Effort Respiratory Pattern Blood Pressure Blood Pressure Mean Pulse Ox 100 92 Oxygen Delivery Method Room Air Positive well nourished and well developed General Appearance ED: well developed and NAD HEENT Reports normocephalic, head/scalp atraumatic and moist mucous membranes HEENT Narrative: When I check gag reflex using tongue depressor the patient bites down on the tongue depressor and brings his arms up to try to grab them. Eyes Eyes Narrative: Pupils are 2 mm bilaterally. He appears to have a left upward look to the eyes. There is mild conjunctival injection. They are reactive. Neck no lymphadenopathy, supple and no JVD Resp normal respiratory effort and clear to auscultation bilaterally Cardio regular rate, regular rhythm and no murmurs GI normal to inspection, nondistended, normoactive bowel sounds and non-tender Palpation: soft Back/Spine no CVA tenderness and normal ROM Extremity normal to inspection General Extremety ED: Negative for edema General Extremity: Negative for edema Neuro Neuro Narrative: Purposeful movement to gag reflex Sensorium / Orientation: stuporous Skin no rashes or lesions noted and no wounds MDM MDM MDM Narrative Medical decision making narrative: Broad-based differential diagnosis includes but not limited to intracranial hemorrhage stroke alcohol intoxication drug intoxication/toxidro me Abnormalities dehydration sepsis infection EKG shows a normal sinus rhythm with a ventricular rate of 69 bpm. ABG shows a pH of 7.325 pCO2 43.8 PaO2 of 113.9 bicarb 22.8. My independent interpretation of the chest x-ray is no acute process. CT of the brain was obtained read by radiology reviewed myself. This does not demonstrate anything acute. White count returns at 5.6 hemoglobin 14.2 platelet count of 218. Normal coags. BMP shows a glucose of 102 anion gap of 12. CO2 of 21 lactic acid is elevated 2.1 magnesium 2.4 normal LFTs troponin is 6 lipase is 53. Toxicology demonstrates an alcohol level of 401. Urine tox is negative. Urinalysis shows no acute infection Patient is able to be sternal rub now to the point where he can tell us a date of and name. We allow him to metabolize the alcohol until he is more coherent and clinically sober and able to assist us in finding him a ride home. We will reassess him when able to participate in the exam History Record Review Discussion w/independent historian: EMS personnel Lab Data Attestation: I reviewed the patient's lab results. Labs: Laboratory Results - last 24 hr 12/20/24 12/20/24 16:00 16:10 WBC 5.6 RBC 4.62 Hgb 14.2 Hct 41.8 MCV 90.5 MCH 30.7 MCHC 34.0 RDW Std Deviation 45.1 H RDW Coeff of Paramjit 13.5 Plt Count 218 MPV 9.5 Immature Gran % (Auto) 0.200 Neut % (Auto) 36.1 L Lymph % (Auto) 49.9 H [place] % (Auto) 10.2 H Eos % (Auto) 3.2 Baso % (Auto) 0.4 Absolute Neuts (auto) 2.0 Absolute Lymphs (auto) 2.79 (more content not included)... Normal [facility] Epithelial cells.squamous LM Ql (Urine sed)Ordered By: Kale Kitchen on 12-20-2024 Epithelial cells.squamous LM.HPF (Urine sed) [#/Area] 0 /[HPF] 0-5 [facility] Erythrocyte distribution wid th standard deviationOrdered By: Kale Kitchen on 12-20-2024 Erythrocyte distribution width (RBC) [Entitic vol] 45.1 fL High 35.1-43.9 [facility] Estimation of creatinine harry aranceOrdered By: Kale Kitchen on 12-20-2024 Estimated Creatinine Clearance Calc 80.26 ml/min 50-250 [facility] Ethanol [Mass/Vol]Ordered By : Kale Kitchen on 12-20-2024 Ethyl Alcohol Level 256.0 mg/dL High <10.1 [facility] Comment on above: This test is for med ical purposes only. The legal definition of intoxication varies according to local law. GFR/1.73 sq M.predicted navdeep g non-blacks MDRD (S/P/Bld) [Vol rate/Area]Ordered By: Kale Kitchen on 12-20-2024 Estimated GFR (MDRD) Non-Af Amer 88 >60 [facility] Comment on above: mL/min/1.73m2 CKD-EP I Creatinine Equation (2020) Glucose Ql (U)Ordered By: Pato Kitchen on 12-20-2024 Urine Glucose (UA) Normal mg/dl Normal [facility] Immature granulocytes/100 WB C Auto (Bld)Ordered By: Kale Kitchen on 12-20-2024 Immature granulocytes/100 WBC (Bld) 0.200 % 0.0-0.9 [facility] Comment on above: IG% - Immature Granu locytes (promyelocytes, myelocytes and metamyelocytes) > 1% indicates that a LEFT SHIFT is Present. International normalized rat io (INR) calculationOrdered By: Kale Kitchen on 12-20-2024 INR Coag (Bld) [Relative time] 1.0 {INR} [facility] Ketones Test strip Ql (U)Ord ered By: Kale Kitchen on 12-20-2024 Ketones Ql (U) Negative Negative [facility] L501.4021on 12-20-2024 Trop T High Sen 6 ng/L Normal <=22 [facility] Comment on above: Performed By: #### L 501.5200, L500.2500, L300.4310, L501.4021, L300.3900, L500.3400, L503.6005, L501.2450, L501.9100, L505.5000, L100.0100 ####[facility] [address] [place], [address] Lactic AcidOrdered By: Zach Kitchen on 12-20-2024 Lactate [Moles/Vol] 2.1 mmol/L High 0.0-2.0 [facility] Comment on above: Order Comment: Y Performed By: #### L 501.5200, L500.2500, L300.4310, L501.4021, L300.3900, L500.3400, L503.6005, L501.2450, L501.9100, L505.5000, L100.0100 #### [facility] [address] [place], [address] LipaseOrdered By: Kale arredondo on 12-20-2024 Lipase [Catalytic activity/Vol] 53 U/L Normal 13-75 [facility] Comment on above: Result Comment: Plea se note: LIPASE revised reference range effective 23. New Lipase methodology. Expected to produce lower values than the previous assay method. NEW Reference Range: 13 - 75 U/L Performed By: #### L 501.5200, L500.2500, L300.4310, L501.4021, L300.3900, L500.3400, L503.6005, L501.2450, L501.9100, L505.5000, L100.0100 ####[facility] [address] [place], [place], [id number] Please note:LIPASE r evised reference range effective 23. New Lipase methodology. Expected to produce lower values than the previous assay method. NEW Reference Range: 13 - 75 U/L Liver ProfileOrdered By: Donn Kitchen on 12-20-2024 Albumin [Mass/Vol] 3.8 g/dL Normal 3.4-4.8 [facility] Comment on above: Performed By: #### L 501.5200, L500.2500, L300.4310, L501.4021, L300.3900, L500.3400, L503.6005, L501.2450, L501.9100, L505.5000, L100.0100 ####[facility] [address] [place], [address] ALT [Catalytic activity/Vol] 11 U/L Normal <=46 [facility] Comment on above: Performed By: #### L 501.5200, L500.2500, L300.4310, L501.4021, L300.3900, L500.3400, L503.6005, L501.2450, L501.9100, L505.5000, L100.0100 ####[facility] [address] [place], [address] AST [Catalytic activity/Vol] 20 U/L Normal <=37 [facility] Comment on above: Performed By: #### L 501.5200, L500.2500, L300.4310, L501.4021, L300.3900, L500.3400, L503.6005, L501.2450, L501.9100, L505.5000, L100.0100 ####[facility] [address] [place], [address] Bilirubin [Mass/Vol] 0.20 mg/dL Normal 0.00-1.30 [facility] Comment on above: Performed By: #### L 501.5200, L500.2500, L300.4310, L501.4021, L300.3900, L500.3400, L503.6005, L501.2450, L501.9100, L505.5000, L100.0100 ####[facility] [address] [place], [address] Bilirubin.direct [Mass/Vol] 0.09 mg/dL Normal 0.00-0.30 [facility] Comment on above: Performed By: #### L 501.5200, L500.2500, L300.4310, L501.4021, L300.3900, L500.3400, L503.6005, L501.2450, L501.9100, L505.5000, L100.0100 ####[facility] [address] [place], [address] Globulin (S) [Mass/Vol] 3.4 g/dL Normal 2.2-4.2 [facility] Comment on above: Performed By: #### L 501.5200, L500.2500, L300.4310, L501.4021, L300.3900, L500.3400, L503.6005, L501.2450, L501.9100, L505.5000, L100.0100 ####[facility] [address] [place], [address] Liver Profileon 12-20-2024 ALK PHOS 73 U/L Normal 40-129 [facility] Comment on above: Performed By: #### L 501.5200, L500.2500, L300.4310, L501.4021, L300.3900, L500.3400, L503.6005, L501.2450, L501.9100, L505.5000, L100.0100 ####[facility] [address] [place], [address] T PROT 7.1 g/dL Normal 5.9-8.4 [facility] Comment on above: Performed By: #### L 501.5200, L500.2500, L300.4310, L501.4021, L300.3900, L500.3400, L503.6005, L501.2450, L501.9100, L505.5000, L100.0100 ####[facility] [address] [facility] [place], [place], [id number] Lymphocytes Auto (Unsp spec) [#/Vol]Ordered By: Kale Kitchen on 12-20-2024 Lymphocytes (Bld) [#/Vol] 2.79 10*3/uL 0.83-4.51 [facility] MagnesiumOrdered By: Kale Kitchen on 12-20-2024 Magnesium [Mass/Vol] 2.4 mg/dL High 1.5-2.2 [facility] Comment on above: Performed By: #### L 501.5200, L500.2500, L300.4310, L501.4021, L300.3900, L500.3400, L503.6005, L501.2450, L501.9100, L505.5000, L100.0100 ####[facility] [address] [facility] [place], [address] Methadone, urineOrdered By: Kale Kitchen on 12-20-2024 Urine Methadone Screen Negative < 300 ng/mL [facility] Microscopic analysis of urin e for red blood cells (RBC)Ordered By: Kale Kitchen on 12-20-2024 Urine RBC 0-5 SEEN /hpf 0-5 [facility] Mucus LM Ql (Urine sed)Order ed By: Kale Kitchen on 12-20-2024 Mucus Ql (Urine sed) 0 SEEN /hpf [facility] Nitrite Test strip Ql (U)Ord ered By: Kale Kitchen on 12-20-2024 Nitrite Ql (U) Negative Negative [facility] No Panel InformationOrdered By: Kale Kitchen on 12-20-2024 Urine Buprenorphine Qualitative Negative < 200 ng/mL [facility] Urine Oxycodone Screen Negative < 100 ng/mL [facility] Blood Gas Sample Site L Radial [facility] Blood Gas Specimen Type ART W [facility] Blood Gas Vent Mode Not entered [facility] Oxygen Delivery Device Cannula [facility] Troponin T High Sensitivity 6 ng/L <22 [facility] Nucleated red blood cell per centageOrdered By: Kale Kitchen on 12-20-2024 Nucleated RBC/100 WBC (Bld) [Ratio] 0 % 0-5 [facility] Oxygen saturation measuremen tOrdered By: Kale Kitchen on 12-20-2024 Blood Gas Oxygen Saturation 98 % 95-99 [facility] Partial Thromboplast TimeOrd ered By: Kale Kitchen on 12-20-2024 aPTT Coag (Bld) [Time] 31.0 s Normal 24.1-36.2 [facility] Comment on above: Performed By: #### L 501.5200, L500.2500, L300.4310, L501.4021, L300.3900, L500.3400, L503.6005, L501.2450, L501.9100, L505.5000, L100.0100 #### [facility] [address] [place], [place], [id number] Partial pressure of carbon d ioxide measurementOrdered By: Kale Kitchen on 12-20-2024 Arterial Blood Partial Pressure CO2 43.8 mmHg 35-45 [facility] Partial pressure of oxygen m easurementOrdered By: Kale Kitchen on 12-20-2024 Arterial Blood Partial Pressure O2 114 mmHG High 75-100 [facility] Protein Test strip Ql (U)Ord ered By: Kale Kitchen on 12-20-2024 Protein Ql (U) Negative Negative [facility] Prothrombin Time w/INRon INR Coag (PPP) [Relative time] 1.0 {INR} Normal [facility] Comment on above: Performed By: #### L 501.5200, L500.2500, L300.4310, L501.4021, L300.3900, L500.3400, L503.6005, L501.2450, L501.9100, L505.5000, L100.0100 #### [facility] [address] [facility] [place], [address] Prothrombin Time w/INROrdere d By: Kale Kitchen on 12-20-2024 PT Coag (PPP) [Time] 12.9 s Normal 11.7-14.9 [facility] Comment on above: Performed By: #### L 501.5200, L500.2500, L300.4310, L501.4021, L300.3900, L500.3400, L503.6005, L501.2450, L501.9100, L505.5000, L100.0100 #### [facility] [address] [facility] [place], [address] Quantitative urine opiates m easurementOrdered By: Kale Kitchen on 12-20-2024 Opiates Ql (U) Negative < 300 ng/mL [facility] Serum or plasma alkaline phoenix sphatase measurementOrdered By: Kale Kitchen on 12-20-2024 ALP [Catalytic activity/Vol] 73 U/L 40-129 [facility] Total carbon dioxide measure mentOrdered By: Kale Kitchen on 12-20-2024 Blood Gas Total CO2 24 mmol/L [facility] Total proteinOrdered By: Donn ness Imtiaz on 12-20-2024 Protein [Mass/Vol] 7.1 g/dL 5.9-8.4 [facility] Transitional cells LM Ql (Ur ine sed)Ordered By: Kale Kitchen on 12-20-2024 Urine Transitional Epithelial Cells 0-5 SEEN /hpf 0-5 [facility] Urinalysis, Completeon 12-20 BACTERIA RARE Normal None Seen [facility] Comment on above: Order Comment: KAYLEEN TER SPECIMEN Performed By: #### L 400.0001 ####[facility] [address] [place], [address] EPI,SQUAMOUS 0-5 SEEN Normal 0-5 [facility] Comment on above: Order Comment: KAYLEEN TER SPECIMEN Performed By: #### L 400.0001 ####[facility] [address] [place], [address] EPI,TRANSITION 0-5 SEEN Normal 0-5 [facility] Comment on above: Order Comment: KAYLEEN TER SPECIMEN Performed By: #### L 400.0001 ####[facility] [address] [place], [address] RBC 0-5 SEEN Normal 0-5 [facility] Comment on above: Order Comment: KAYLEEN TER SPECIMEN Performed By: #### L 400.0001 ####[facility] [address] [place], [address] WBC 0-5 SEEN Normal 0-5 [facility] Comment on above: Order Comment: KAYLEEN TER SPECIMEN Performed By: #### L 400.0001 ####[facility] [address] [place], [address] Mucus Ql (Urine sed) 0 SEEN Normal [facility] Comment on above: Order Comment: KAYLEEN TER SPECIMEN Performed By: #### L 400.0001 ####[facility] [address] [place], [place], [phone] Urine Drug Screen (VISTA)on 12-20-2024 AMPHETAMINES Negative Normal <1000 ng/mL [facility] Comment on above: Performed By: #### L 501.5200, L500.2500, L300.4310, L501.4021, L300.3900, L500.3400, L503.6005, L501.2450, L501.9100, L505.5000, L100.0100 ####[facility] [address] [place], [place], [phone] BARBITIURATES Negative Normal < 200 ng/mL [facility] Comment on above: Performed By: #### L 501.5200, L500.2500, L300.4310, L501.4021, L300.3900, L500.3400, L503.6005, L501.2450, L501.9100, L505.5000, L100.0100 ####[facility] [address] [place], [place], [id number] BENZODIAZIPINE Negative Normal < 200 ng/mL [facility] Comment on above: Performed By: #### L 501.5200, L500.2500, L300.4310, L501.4021, L300.3900, L500.3400, L503.6005, L501.2450, L501.9100, L505.5000, L100.0100 ####[facility] [address] [place], [place], [phone] BUP Ur Drug Scr Negative Normal < 200 ng/mL [facility] Comment on above: Performed By: #### L 501.5200, L500.2500, L300.4310, L501.4021, L300.3900, L500.3400, L503.6005, L501.2450, L501.9100, L505.5000, L100.0100 ####[facility] [address] [place], [place], [phone] COCAINE Negative Normal < 300 ng/mL [facility] Comment on above: Performed By: #### L 501.5200, L500.2500, L300.4310, L501.4021, L300.3900, L500.3400, L503.6005, L501.2450, L501.9100, L505.5000, L100.0100 ####[facility] [address] [place], [place], [phone] Fentanyl Negative Normal [facility] Comment on above: Performed By: #### L 501.5200, L500.2500, L300.4310, L501.4021, L300.3900, L500.3400, L503.6005, L501.2450, L501.9100, L505.5000, L100.0100 ####[facility] [address] [place], [place], [phone] METHADONE Negative Normal < 300 ng/mL [facility] Comment on above: Performed By: #### L 501.5200, L500.2500, L300.4310, L501.4021, L300.3900, L500.3400, L503.6005, L501.2450, L501.9100, L505.5000, L100.0100 ####[facility] [address] [place], [address] OPIATES Negative Normal < 300 ng/mL [facility] Comment on above: Performed By: #### L 501.5200, L500.2500, L300.4310, L501.4021, L300.3900, L500.3400, L503.6005, L501.2450, L501.9100, L505.5000, L100.0100 ####[facility] [address] [place], [place], [phone] OXYCODONE Negative Normal < 100 ng/mL [facility] Comment on above: Performed By: #### L 501.5200, L500.2500, L300.4310, L501.4021, L300.3900, L500.3400, L503.6005, L501.2450, L501.9100, L505.5000, L100.0100 ####[facility] [address] [place], [place], [phone] PCP Negative Normal < 25 ng/mL [facility] Comment on above: Performed By: #### L 501.5200, L500.2500, L300.4310, L501.4021, L300.3900, L500.3400, L503.6005, L501.2450, L501.9100, L505.5000, L100.0100 ####[facility] [address] [facility] [place], [place], [phone] THC Negative Normal < 50 ng/mL [facility] Comment on above: Performed By: #### L 501.5200, L500.2500, L300.4310, L501.4021, L300.3900, L500.3400, L503.6005, L501.2450, L501.9100, L505.5000, L100.0100 ####[facility] [address] [facility] [place], [place], [phone] Urine benzodiazepine levelOr dered By: Kale Kitchen on 12-20-2024 Benzodiazepines Ql (U) Negative < 200 ng/mL [facility] Urine blood detectionOrdered By: Kale Kitchen on 12-20-2024 Urine Occult Blood 10 /ul High Negative [facility] Urine clarityOrdered By: Donn Kitchen on 12-20-2024 Clarity (U) Clear Clear [facility] Urine cocaine levelOrdered B y: Kale Kitchen on 12-20-2024 Cocaine Ql (U) Negative < 300 ng/mL [facility] Urine color determinationOrd ered By: Kale Kitchen on 12-20-2024 Color (U) Yellow Yellow [facility] Urine uyghr-5-bisdmuwhevahnt abinol (THC) measurementOrdered By: Kale Kitchen on 12-20-2024 Cannabinoids Screen Ql (U) Negative < 50 ng/mL [facility] Urine leukocyte esterase det ection by dipstickOrdered By: Kale Kitchen on 12-20-2024 Leukocyte esterase Test strip Ql (U) Negative Negative [facility] Urine pHOrdered By: Kale hand on 12-20-2024 pH (U) 6.0 [pH] 5.0 - 8.0 [facility] Urine phencyclidine (PCP) de tectionOrdered By: Kale Kitchen on 12-20-2024 Phencyclidine Ql (U) Negative < 25 ng/mL [facility] Urine specific gravity measu rementOrdered By: Kale Kitchen on 12-20-2024 Specific gravity (U) [Rel density] 1.005 1.002-1.030 [facility] Urobilinogen Ql (U)Ordered B y: Kale Kitchen on 12-20-2024 Urine Urobilinogen Normal mg/dl Normal [facility] White blood cell countOrdere d By: Kale Kitchen on 12-20-2024 Urine WBC 0-5 SEEN /hpf 0-5 [facility] fentaNYL Screen Ql (U)Ordere d By: Kale Kitchen on 12-20-2024 Urine Fentanyl Screen Negative [facility] pH (Unsp spec)Ordered By: Pato Kitchen on 12-20-2024 Blood Gas pH 7.33 Low 7.35-7.45 [facility] COVID-19, Rapidon 11-19-2021 SARS-CoV-2 (COVID-19) RNA AALIYAH+probe Ql (Unsp spec) Not detected Not Detected [place] Comment on above: Rapid NAAT: The specimen is NEGATIVE for SARS-CoV-2, the novel coronavirus associated with COVID-19. The ID NOW COVID-19 assay is designed to detect the virus that causes COVID-19 in patients with signs and symptoms of infection who are suspected of COVID-19. An individual without symptoms of COVID-19 and who is not shedding SARS-CoV-2 virus would expect to have a negative (not detected) result in this assay. Negative results should be treated as presumptive and, if inconsistent with clinical signs and symptoms or necessary for patient management, should be tested with an alternative molecular assay. Negative results do not preclude SARS-CoV-2 infection and should not be used as the sole basis for patient management decisions. Fact sheet for Healthcare Providers: https://www.fda.gov/media/477978/download Fact sheet for Patients: https://www.fda.gov/media/788169/download Methodology: Isothermal Nucleic Acid Amplification Specimen Description .NASOPHARYNGEAL SWAB [facility] [id number] 11-19-2021 SARS-CoV-2 (COVID-19) RNA AALIYAH+probe Ql (Unsp spec) Not detected Normal NOTDET [facility] Comment on above: Result Comment: Rapid NAAT: The specimen is NEGATIVE for SARS-CoV-2, the novel coronavirus associated with COVID-19. The ID NOW COVID-19 assay is designed to detect the virus that causes COVID-19 in patients with signs and symptoms of infection who are suspected of COVID-19. An individual without symptoms of COVID-19 and who is not shedding SARS-CoV-2 virus would expect to have a negative (not detected) result in this assay. Negative results should be treated as presumptive and, if inconsistent with clinical signs and symptoms or necessary for patient management, should be tested with an alternative molecular assay. Negative results do not preclude SARS-CoV-2 infection and should not be used as the sole basis for patient management decisions. Fact sheet for Healthcare Providers: https://www.fda.gov/media/564270/download Fact sheet for Patients: https://www.fda.gov/media/906743/download Methodology: Isothermal Nucleic Acid Amplification Performed By: #### C OVRB #### [employer] [address] [place] [address] Cyber Security Systems Engineer: Kelvin Higginbotham MD Basic Metab w/rfx MGon 08-29 Potassium [Moles/Vol] 3.4 mmol/L Low 3.7-5.3 [facility] Comment on above: Performed By: #### C DP, TROPI, LIVP, BMPX, EDTOX, MG #### [address] [address] Cyber Security Systems Engineer: Kelvin Higginbotham MD Anion gap [Moles/Vol] 17 mmol/L Normal 9-17 [facility] Comment on above: Performed By: #### C DP, TROPI, LIVP, BMPX, EDTOX, MG #### [address] [address] Cyber Security Systems Engineer: Kelvin Higginbotham MD Calcium [Mass/Vol] 8.7 mg/dL Normal 8.6-10.4 [facility] Comment on above: Performed By: #### C DP, TROPI, LIVP, BMPX, EDTOX, MG #### [address] [address] Cyber Security Systems Engineer: Kelvin Higginbotham MD Chloride [Moles/Vol] 99 mmol/L Normal 98-107 [facility] Comment on above: Performed By: #### C DP, TROPI, LIVP, BMPX, EDTOX, MG #### [address] [address] Cyber Security Systems Engineer: Kelvin Higginbotham MD CO2 [Moles/Vol] 19 mmol/L Low 20-31 [facility] Comment on above: Performed By: #### C DP, TROPI, LIVP, BMPX, EDTOX, MG #### [address] [address] Cyber Security Systems Engineer: Kelvin Higginbotham MD Creatinine [Mass/Vol] 0.72 mg/dL Normal 0.70-1.20 [facility] Comment on above: Performed By: #### C DP, TROPI, LIVP, BMPX, EDTOX, MG #### [address] [address] Cyber Security Systems Engineer: Kelvin Higginbotham MD Glucose [Mass/Vol] 100 mg/dL High 70-99 [facility] Comment on above: Performed By: #### C DP, TROPI, LIVP, BMPX, EDTOX, MG #### [address] [address] Cyber Security Systems Engineer: Kelvin Higginbotham MD Sodium [Moles/Vol] 135 mmol/L Normal 135-144 [facility] Comment on above: Performed By: #### C DP, TROPI, LIVP, BMPX, EDTOX, MG #### [address] [address] Cyber Security Systems Engineer: Kelvin Higginbotham MD Urea nitrogen [Mass/Vol] 10 mg/dL Normal 8-23 [facility] Comment on above: Performed By: #### C DP, TROPI, LIVP, BMPX, EDTOX, MG #### [address] [address] Cyber Security Systems Engineer: Kelvin Higginbotham MD (cont.) NOT REPORTED Normal [facility] Comment on above: Performed By: #### C DP, TROPI, LIVP, BMPX, EDTOX, MG #### [address] [address] Cyber Security Systems Engineer: Kelvin Higginbotham MD BUN/CRE Ratio NOT REPORTED Normal 9-20 [facility] Comment on above: Performed By: #### C DP, TROPI, LIVP, BMPX, EDTOX, MG #### [address] [address] Cyber Security Systems Engineer: Kelvin Higginbotham MD GFR, Amer NOT REPORTED Normal >60 [facility] Comment on above: Performed By: #### C DP, TROPI, LIVP, BMPX, EDTOX, MG #### [address] [address] Cyber Security Systems Engineer: Kelvin Higginbotham MD GFR,non Amer NOT REPORTED Normal >60 [facility] Comment on above: Performed By: #### C DP, TROPI, LIVP, BMPX, EDTOX, MG #### [address] [address] Cyber Security Systems Engineer: Kelvin Higginbotham MD Staging: NOT REPORTED Normal [facility] Comment on above: Performed By: #### C DP, TROPI, LIVP, BMPX, EDTOX, MG #### [address] [address] Cyber Security Systems Engineer: Kelvin Higginbotham MD CBC with Diffon 08-29-2021 Abs. Basophil 0.04 k/uL Normal 0.00-0.20 [facility] Comment on above: Performed By: #### C DP, TROPI, LIVP, BMPX, EDTOX, MG #### [place] [address] [employer] Security Systems Engineer: Kelvin Higginbotham MD Abs.Imm.Granulocyte <0.03 Normal 0.00-0.30 [facility] Comment on above: Performed By: #### C DP, TROPI, LIVP, BMPX, EDTOX, MG #### [address] [address] Cyber Security Systems Engineer: Kelvin Higginbotham MD Abs.Neutrophil (Seg) 2.44 k/uL Normal 1.50-8.10 [facility] Comment on above: Performed By: #### C DP, TROPI, LIVP, BMPX, EDTOX, MG #### [address] [address] Cyber Security Systems Engineer: Kelvin Higginbotham MD Basophils/100 WBC (Bld) 1 % Normal 0-2 [facility] Comment on above: Performed By: #### C DP, TROPI, LIVP, BMPX, EDTOX, MG #### [address] [address] Cyber Security Systems Engineer: Kelvin Higginbotham MD Eosinophils (Bld) [#/Vol] 0.19 10*3/uL Normal 0.00-0.44 [facility] Comment on above: Performed By: #### C DP, TROPI, LIVP, BMPX, EDTOX, MG #### [address] [address] Cyber Security Systems Engineer: Kelvin Higginbotham MD Eosinophils/100 WBC (Bld) 3 % Normal 1-4 [facility] Comment on above: Performed By: #### C DP, TROPI, LIVP, BMPX, EDTOX, MG #### [place] [address] [employer] Security Systems Engineer: Kelvin Higginbotham MD Erythrocyte distribution width (RBC) [Ratio] 13.5 % Normal 11.8-14.4 [facility] Comment on above: Performed By: #### C DP, TROPI, LIVP, BMPX, EDTOX, MG #### [place] [address] [employer] Security Systems Engineer: Kelvin Higginbotham MD Hematocrit (Bld) [Volume fraction] 43.8 % Normal 40.7-50.3 [facility] Comment on above: Performed By: #### C DP, TROPI, LIVP, BMPX, EDTOX, MG #### [place] [address] [employer] Security Systems Engineer: Kelvin Higginbotham MD Hemoglobin (Bld) [Mass/Vol] 14.6 g/dL Normal 13.0-17.0 [facility] Comment on above: Performed By: #### C DP, TROPI, LIVP, BMPX, EDTOX, MG #### [facility] [address] [place] [address] Cyber Security Systems Engineer: Kelvin Higginbotham MD Immature granulocytes/100 WBC (Bld) 0 % Normal 0 [facility] Comment on above: Performed By: #### C DP, TROPI, LIVP, BMPX, EDTOX, MG #### [address] [address] Cyber Security Systems Engineer: Kelvin Higginbotham MD Lymphocytes (Bld) [#/Vol] 2.62 10*3/uL Normal 1.10-3.70 [facility] Comment on above: Performed By: #### C DP, TROPI, LIVP, BMPX, EDTOX, MG #### [address] [address] Cyber Security Systems Engineer: Kelvin Higginbotham MD Lymphocytes/100 WBC (Bld) 43 % Normal 24-43 [facility] Comment on above: Performed By: #### C DP, TROPI, LIVP, BMPX, EDTOX, MG #### [address] [address] Cyber Security Systems Engineer: Kelvin Higginbotham MD MCH (RBC) [Entitic mass] 34.9 pg High 25.2-33.5 [facility] Comment on above: Performed By: #### C DP, TROPI, LIVP, BMPX, EDTOX, MG #### [address] [address] Cyber Security Systems Engineer: Kelvin Higginbotham MD MCHC (RBC) [Mass/Vol] 33.3 g/dL Normal 28.4-34.8 [facility] Comment on above: Performed By: #### C DP, TROPI, LIVP, BMPX, EDTOX, MG #### [address] [address] Cyber Security Systems Engineer: Kelvin Higginbotham MD MCV (RBC) [Entitic vol] 104.8 fL High 82.6-102.9 [facility] Comment on above: Performed By: #### C DP, TROPI, LIVP, BMPX, EDTOX, MG #### [address] [address] Cyber Security Systems Engineer: Kelvin Higginbotham MD Monocytes (Bld) [#/Vol] 0.78 10*3/uL Normal 0.10-1.20 [facility] Comment on above: Performed By: #### C DP, TROPI, LIVP, BMPX, EDTOX, MG #### [address] [address] Cyber Security Systems Engineer: Kelvin Higginbotham MD Monocytes/100 WBC (Bld) 13 % High 3-12 [facility] Comment on above: Performed By: #### C DP, TROPI, LIVP, BMPX, EDTOX, MG #### [address] [address] Cyber Security Systems Engineer: Kelvin Higginbotham MD Neutrophil (Seg) 40 % Normal 36-65 [facility] Comment on above: Performed By: #### C DP, TROPI, LIVP, BMPX, EDTOX, MG #### [address] [address] Cyber Security Systems Engineer: Kelvin Higginbotham MD NRBC Automated 0.0 per 100 WBC Normal 0.0 [facility] Comment on above: Performed By: #### C DP, TROPI, LIVP, BMPX, EDTOX, MG #### [address] [address] Cyber Security Systems Engineer: Kelvin Higginbotham MD Platelet mean volume (Bld) [Entitic vol] 9.3 fL Normal 8.1-13.5 [facility] Comment on above: Performed By: #### C DP, TROPI, LIVP, BMPX, EDTOX, MG #### [address] [address] Cyber Security Systems Engineer: eKlvin Higginbotham MD Platelets (Bld) [#/Vol] 235 10*3/uL Normal 138-453 [facility] Comment on above: Performed By: #### C DP, TROPI, LIVP, BMPX, EDTOX, MG #### [facility] [address] [place] [address] Cyber Security Systems Engineer: Kelvin Higginbotham MD RBC (Bld) [#/Vol] 4.18 10*6/uL Low 4.21-5.77 [facility] Comment on above: Performed By: #### C DP, TROPI, LIVP, BMPX, EDTOX, MG #### [facility] [address] [place] [address] Cyber Security Systems Engineer: Kelvin Higginbotham MD RBC morphology finding Nom (Bld) MACROCYTOSIS PRESENT Normal [facility] Comment on above: Performed By: #### C DP, TROPI, LIVP, BMPX, EDTOX, MG #### [address] [address] Cyber Security Systems Engineer: Kelvin Higginbotham MD WBC (Bld) [#/Vol] 6.1 10*3/uL Normal 3.5-11.3 [facility] Comment on above: Performed By: #### C DP, TROPI, LIVP, BMPX, EDTOX, MG #### [facility] [address] [place] [address] Cyber Security Systems Engineer: Kelvin Higginbotham MD Auto Diff Performed NOT REPORTED Normal [facility] Comment on above: Performed By: #### C DP, TROPI, LIVP, BMPX, EDTOX, MG #### [facility] [address] [place] [address] Cyber Security Systems Engineer: Kelvin Higginbotham MD Platelet Comment NOT REPORTED Normal [facility] Comment on above: Performed By: #### C DP, TROPI, LIVP, BMPX, EDTOX, MG #### [facility] [address] [place] [address] Cyber Security Systems Engineer: Kelvin Higginbotham MD WBC Morphology NOT REPORTED Normal [facility] Comment on above: Performed By: #### C DP, TROPI, LIVP, BMPX, EDTOX, MG #### [employer] [address] [place], [place] [id number] Cyber Security Systems Engineer: Kelvin Higginbotham MD CT HEAD WO CONTRASTon 2020 CT HEAD WO CONTRAST EXAMINATION: CT OF THE HEAD WITHOUT CONTRAST 08/29/2021 1:07 pm TECHNIQUE: CT of the head was performed without the administration of intravenous contrast. Dose modulation, iterative reconstruction, and/or weight based adjustment of the mA/kV was utilized to reduce the radiation dose to as low as reasonably achievable. COMPARISON: None. HISTORY: ORDERING SYSTEM PROVIDED HISTORY: AMS TECHNOLOGIST PROVIDED HISTORY: AMS Decision Support Exception - unselect if not a suspected or confirmed emergency medical condition->Emergency Medical Condition (MA) Reason for Exam: Pt. Arrives to ED via LS1 from outside for c/o drug overdose. Pt. Was found by bystanders unresponsive. On EMS arrival pt. Received 2mg narcan IV, 2mg narcan IN with no response. Pt. Arrives unable to communicate, no airway concerns. Acuity: Unknown Type of Exam: Unknown FINDINGS: BRAIN/VENTRICLES: Mild cerebral atrophy. No midline shift. Basal cisterns are normally outlined. No acute infarct. No acute intracranial hemorrhage. ORBITS: The visualized portion of the orbits demonstrate no acute abnormality. SINUSES: Some mucosal thickening in the ethmoid sinuses reflect chronic sinus inflammatory disease. Mastoid air cells clear. SOFT TISSUES/SKULL: No acute abnormality of the visualized skull or soft tissues. IMPRESSION: No acute intracranial abnormality. Mild cerebral atrophy. Mild chronic ethmoid sinus inflammatory disease. Interpreted by: Kale Correia MD Signed by: Kale Correia MD 08/29/21 Final result Normal [facility] Liver Profileon 08-29-2021 Albumin [Mass/Vol] 3.7 g/dL Normal 3.5-5.2 [facility] Comment on above: Performed By: #### C DP, TROPI, LIVP, BMPX, EDTOX, MG #### [employer] [address] [place], [place] [id number] Cyber Security Systems Engineer: Kelvin Higginbotham MD Albumin/Glob Ratio 1.2 Normal 1.0-2.5 [facility] Comment on above: Performed By: #### C DP, TROPI, LIVP, BMPX, EDTOX, MG #### [facility] [address] [place] [address] Cyber Security Systems Engineer: Kelvin Higginbotham MD Alkaline Phos 50 U/L Normal 40-129 [facility] Comment on above: Performed By: #### C DP, TROPI, LIVP, BMPX, EDTOX, MG #### [address] [address] Cyber Security Systems Engineer: Kelvin Higginbotham MD ALT [Catalytic activity/Vol] 13 U/L Normal 5-41 [facility] Comment on above: Performed By: #### C DP, TROPI, LIVP, BMPX, EDTOX, MG #### [facility] [address] [place] [address] Cyber Security Systems Engineer: Kelvin Higginbotham MD AST [Catalytic activity/Vol] 21 U/L Normal <40 [facility] Comment on above: Performed By: #### C DP, TROPI, LIVP, BMPX, EDTOX, MG #### [address] [address] Cyber Security Systems Engineer: Kelvin Higginbotham MD Bilirubin [Mass/Vol] 0.18 mg/dL Low 0.3-1.2 [facility] Comment on above: Performed By: #### C DP, TROPI, LIVP, BMPX, EDTOX, MG #### [facility] [address] [place] [address] Cyber Security Systems Engineer: Kelvin Higginbotham MD Bilirubin, Indirect Can not be calculated Normal 0.00-1.00 [facility] Comment on above: Performed By: #### C DP, TROPI, LIVP, BMPX, EDTOX, MG #### [address] [address] Cyber Security Systems Engineer: Kelvin Higginbotham MD Bilirubin.indirect [Mass/Vol] mg/dL Normal <0.31 [facility] Comment on above: Performed By: #### C DP, TROPI, LIVP, BMPX, EDTOX, MG #### [address] [address] Cyber Security Systems Engineer: Kelvin Higginbotham MD Protein [Mass/Vol] 6.7 g/dL Normal 6.4-8.3 [facility] Comment on above: Performed By: #### C DP, TROPI, LIVP, BMPX, EDTOX, MG #### [address] [address] Cyber Security Systems Engineer: Kelvin Higginbotham MD Globulin Fraction NOT REPORTED Normal 1.5-3.8 [facility] Comment on above: Performed By: #### C DP, TROPI, LIVP, BMPX, EDTOX, MG #### [address] [address] Cyber Security Systems Engineer: Kelvin Higginbotham MD Magnesiumon 9 Magnesium [Mass/Vol] 2.2 mg/dL Normal 1.6-2.6 [facility] Comment on above: Performed By: #### C DP, TROPI, LIVP, BMPX, EDTOX, MG #### [address] [address] Cyber Security Systems Engineer: Kelvin Higginbotham MD Tox Scr, Bld, EDon Acetaminophen [Mass/Vol] ug/mL Low 10-30 [facility] Comment on above: Performed By: #### C DP, TROPI, LIVP, BMPX, EDTOX, MG #### [address] [address] Cyber Security Systems Engineer: Kelvin Higginbotham MD Ethanol [Mass/Vol] 422 mg/dL Critically high <10 [facility] Comment on above: Performed By: #### C DP, TROPI, LIVP, BMPX, EDTOX, MG #### [facility] [address] [place] [address] Cyber Security Systems Engineer: Kelvin Higginbotham MD Ethanol percent 0.422 % High <0.010 [facility] Comment on above: Performed By: #### C DP, TROPI, LIVP, BMPX, EDTOX, MG #### [facility] [address] [place] [address] Cyber Security Systems Engineer: Kelvin Higginbotham MD Salicylate <1 Low 3-10 [facility] Comment on above: Performed By: #### C DP, TROPI, LIVP, BMPX, EDTOX, MG #### [address] [address] Cyber Security Systems Engineer: Kelvin Higginbotham MD Toxic Tricyclic Sc,Bl Negative Normal NEG [facility] Comment on above: Performed By: #### C DP, TROPI, LIVP, BMPX, EDTOX, MG #### [facility] [address] [place] [address] Cyber Security Systems Engineer: Kelvin Higginbotham MD Troponinon 08-29-2021 Troponin, High Sens <6 Normal 0-22 [facility] Comment on above: Result Comment: High Sensitivity Troponin values cannot be compared with other Troponin methodologies. Patients with high levels of Biotin oral intake (i.e >5mg/day) may have falsely decreased Troponin levels. Samples collected within 8 hours of biotin intake may require additional information for diagnosis. Performed By: #### C DP, TROPI, LIVP, BMPX, EDTOX, MG #### [facility] [address] [place] [address] Cyber Security Systems Engineer: Kelvin Higginbotham MD Troponin Interp. NOT REPORTED Normal [facility] Comment on above: Performed By: #### C DP, TROPI, LIVP, BMPX, EDTOX, MG #### [facility] [address] [place], [place] [address] Cyber Security Systems Engineer: Kelvin Higginbotham MD Troponin T NOT REPORTED Normal <0.03 [facility] Comment on above: Performed By: #### C DP, TROPI, LIVP, BMPX, EDTOX, MG #### [facility] [address] [place], [place] [id number] Cyber Security Systems Engineer: Kelvin Higginbotham MD Vital Signs Date Time Vital Sign Value Performing Clinician Faci lity 05-10-2025 18:00-0400 Diastolic blood pressure 59 mm[Hg] [facility] 05-10-2025 18:00-0400 Heart rate 66 /min [facility] 05-10-2025 18:00-0400 Respiratory rate 16 /min [facility] 05-10-2025 18:00-0400 SaO2% (BldA) [Mass fraction] 99 % [facility] 05-10-2025 18:00-0400 Systolic blood pressure 102 mm[Hg] [facility] 05-10-2025 15:36-0400 Body height 182.88 cm [facility] 05-10-2025 15:36-0400 Body mass index (BMI) [Ratio] 23.6 kg/m2 [facility] 05-10-2025 15:36-0400 Body temperature 98.2 [degF] [facility] 05-10-2025 15:36-0400 Body weight 78.8 kg [facility] 12-20-2024 23:06-0400 Respiratory rate 20 /min Dr. Kale Kitchen DO Work Phone: [facility] 12-20-2024 21:06-0400 Diastolic blood pressure 69 mm[Hg] Dr. Kale Kitchen DO Work Phone: [facility] 12-20-2024 21:06-0400 Heart rate 72 /min Dr. Kale Kitchen DO Work Phone: [facility] 12-20-2024 21:06-0400 SaO2% (BldA) [Mass fraction] 100 % Dr. Kale Kitchen DO Work Phone: [facility] 12-20-2024 21:06-0400 Systolic blood pressure 106 mm[Hg] Dr. Kale Kitchen DO Work Phone: [facility] 12-20-2024 17:30-0400 Body temperature 97.6 [degF] Dr. Kale Kitchen DO Work Phone: [facility] 12-20-2024 15:51-0400 Body height 182.[address] Kale Kitchen DO Work Phone: [facility] 12-20-2024 15:51-0400 Body mass index (BMI) [Ratio] 23.3 kg/m2 Dr. Kale Kitchen DO Work Phone: [facility] 12-20-2024 15:51-0400 Body weight 78.[address] Kale Kitchen DO Work Phone: [facility] Encounters Encounter Date Encounter Type Care Provider Facility Start: 05-10-2025 End: 05-10-2025 Emergency department patient visit [facility] -Emergency Department Work Phone: Start: 12-20-2024 End: 12-21-2024 Emergency department patient visit [facility] Facility:[facility] Start: 11-19-2021 End: 11-20-2021 ambulatory VIN SEPULVEDA [facility] Start: 11-19-2021 End: 11-19-2021 Subsequent hospital visit by physician DWIGHT BELLAMY DOCTOR Start: 08-29-2021 End: 08-30-2021 Emergency department patient visit TREV[facility] BH[facility] Procedures Date Procedure Procedure Detail Performing Clinician Start: 05-10-2025 CT of head without contrast [facility] Start: 05-10-2025 Estimated creatinine clearance [facility] Start: 12-20-2024 Plain chest X-ray Dr. Rina Kitchen DO Work Phone: Start: 12-20-2024 CT of head without contrast Dr. Kale Kitchen DO Work Phone: Start: 11-19-2021 COVID-19, RAPID Vin Sepulveda MD Work Phone: Plan of Treatment Date Care Activity Detail Author Start: 12-21-2024 [facility] Start: 12-20-2024 [facility] Start: 07-08-2021 COVID-19 Vaccine (2 - Pfizer 3-dose series) COVID-19 Vaccine (2 - Pfizer 3-dose series) [place] Start: 06-06-2021 Influenza vaccination Flu vaccine (# 1) [facility] Start: 2008 Shingles Vaccine (1 of 2) Shingles Vaccine (1 of 2) [facility] Start: 2003 Screening for malign ant neoplasm of colon Colon cancer screen colonoscopy [facility] Start: 1998 Lipid panel Lipid screen [facility] Start: 1977 DTaP/Tdap/Td vaccine (1 - Tdap) DTaP/Tdap/Td vaccine (1 - Tdap) [facility] Start: 1973 HIV screening HIV screen [facility] Start: 1970 Depression Screen Depression Screen [facility] Start: 1960 Hepatitis C screening Hepatitis C sc [facility] Patient Education ED Alcohol Intoxication [facility] Work Phone: Patient referral [facility] Work Phone: Payers Date Payer Category Payer Self-pay 2020 Unknown [id number] 1960 Unknown [id number] Medicaid [id number] Medicare [id number] [facility] [id number] Unknown [id number] Unknown [id number] 47 Social History Date Type Detail Facility Start: 12-20-2024 End: 05-10-2025 Tobacco smoking status NHIS Tobacco smoking consumption unknown [facility] Start: 1960 Sex Assigned At Not on file M [facility] Work Phone: Start: 12-21-2024 Sex Male (finding) [facility] Start: 1960 Sex Assigned At Male [facility] Mental Status Date Assessment Result Facility 12-21-2024 Cognitive function Voice/Name [facility] Work Phone: Radiology Diagnostic study note 05-10-2025 Note Date & Type Note Facility 05-10-2025 Radiology Diagnostic study note [facility] Imaging Services [address] [place], [place] [id number] Brain/Head without Contrast MR#: [id number] Acct: [id number] Name: MERA PENA Rep #: [id number] : 1960 M 64 From: Serge Mai MD PCP: [facility] Status: PRE ER Study:Brain/Head without Contrast Date of Exa m: 05/10/25 Exam# [id number] Ordering Dr: Christopher Fuentes DO PROCEDURE: BRAIN/HEAD WITHOUT CONTRAST 05/10/2025 REASON FOR EXAM: ?HEAD TRAUMA TECHNIQUE: BRAIN/HEAD WITHOUT CONTRAST Coronal and Sagittal reconstruction series were provided. One or more dose reduction techniques were used (e.g., Automated exposure control, adjustment of the mA and/or kV according to patient size, use of iterative reconstruction technique. RADIATION DOSE SUMMARY: CTDlvol: 44.99 mGy DLP: 829.85 mGycm COMPARISON: CT head December 20, 2024. FINDINGS: Brain: Extensive low density in the deep cerebral white matter most likely represents advanced chronic small vessel ischemic disease. No acute intracranial hemorrhage. No mass-effect or midline shift. CSF Spaces: Moderate generalized cerebral atrophy Sinuses/Mastoids: Clear Bones: No acute bony abnormalities. CT/Brain/Head without Contrast IMPRESSION: No acute intracranial abnormalities. Reading Location: [id number] CC: Dr. Karel Fuentes DO; [facility] ~ Supervisor Plasma: Signed [facility] Discharge summary 12-21-2024 Note Date & Type Note Facility 12-21-2024 Discharge summary [facility] Radiology Diagnostic study note 12-20-2024 Note Date & Type Note Facility 12-20-2024 Radiology Diagnostic study note [facility] Imaging Services [address] [place] [address] Chest 1 View (Portable) MR#: [id number] Acct: [id number] Name: MERA PENA Rep #: [id number] : 1960 M 64 From: Helen Rosado MD PCP: Care Physician,No Primary Status: REG ER Study:Chest 1 View (Portable) Date of Exam: 12/20/24 Exam# [id number] Ordering Dr: Rina Kitchen DO PROCEDURE: CHEST 1 VIEW (PORTABLE) (RADCXPA_P), 12/20/2024 REASON FOR EXAM: UNRESPONSIVE TECHNIQUE: PA and lateral views of the chest were obtained. COMPARISON: None FINDINGS: Heart: Unremarkable. Mediastinum: Mild central vascular prominence. Lungs/pleura: Hypoinflation with vascular crowding. Suspect mild airspace disease in the right lung base. Trace basilar interstitial prominence. No sizeable pleural effusion or visible pneumothorax. Bones: Suspect demineralization. Lines and support devices: None. RAD/Chest 1 View (Portable) IMPRESSION: 1. Limited hypoinflated exam. Mild right basilar airspace disease, atelectasis/scarring versus mild pneumonia. Follow-up to radiographic resolution. 2. Trace basilar interstitial prominence may reflect minimal edema/pneumonitis or a chronic interstitial abnormality in the absence of priors. 3. Additional description as above. Reading Location: [id number] CC: Dr. Kale Kitchen DO; No Primary Care Physician ~ Supervisor Plasma: Signed [facility] Radiology Diagnostic study note 12-20-2024 Note Date & Type Note Facility 12-20-2024 Radiology Diagnostic study note [facility] Imaging Services [address] [place], [place] [id number] Brain/Head without Contrast MR#: [id number] Acct: [id number] Name: MERA PENA Rep #: [id number] : 1960 M 64 From: Helen Rosado MD PCP: Care Physician,No Primary Status: REG ER Study:Brain/Head without Contrast Date of Exa m: 12/20/24 Exam# [id number] Ordering Dr: Rina Kitchen DO PROCEDURE: BRAIN/HEAD WITHOUT CONTRAST (CTBR), 12/20/2024 REASON FOR EXAM: AMS COMPARISON: None TECHNIQUE: CT head was performed without IV contrast. Multiplanar reformats were generated. IV Contrast: None. FINDINGS: Cerebrum: No visible intracranial hemorrhage, mass, or definite acute territorial infarct. Moderate cerebral volume loss. Mild patchy bilateral supratentorial white matter abnormalities, nonspecific but compatible with chronic microvascular ischemic changes. Cerebellum/brainstem: Unremarkable. Note slight limitation due to beam hardeningartifact. Ventricles/extra-axial spaces: Ventriculomegaly proportionate to the degree of volume loss.. Paranasal sinuses/mastoid air cells: Patchy mild opacification of anterior ethmoid air cells. Trace mucosal thickening in the right maxillary sinus.. Scalp/calvarium: Unremarkable. Other: Unremarkable. CT/Brain/Head without Contrast IMPRESSION: 1. No visible intracranial hemorrhage. Mild patchy supratentorial white matter abnormalities, potentially reflecting chronic microvascular ischemic changes however this is not definite in the absence of priors to confirm stability, technically age indeterminate. If there is persistent concern, recommend MRI. 2. Additional description as above. Reading Location: [id number] CC: Dr. Kale Kitchen DO; No Primary Care Physician ~ Supervisor Plasma: Signed [facility] Discharge summary 12-20-2024 Note Date & Type Note Facility 12-20-2024 Discharge summary Note Date/Time December 21, 2024 12:08[facility] Medical Records Department [address] [place] [address] Emergency Department Summary 12/20/24 MR#: [id number] Acct: [id number] Name: MERA PENA JR Rep #:[id number] : 1960 64 From: Kale Evangelista PCP: [facility] Status:REG ER Location: ED HPI History of Present Illness Chief Complaint: Unresponsive Informant: EMS Narrative Narrative: Unresponsive unknown male brought to the emergency department by EMS. Patient was found on the ground outside of a local liquor store. Prehospital EKG shows a sinus rhythm. EMS notes that he was unresponsive to sternal rub for them. They attempted Narcan with no change in mental status. He has no wallet with him. Police on scene did not know the individual's name. EMS notes no outward signs of trauma. PFSH PFSH Medical History unable to obtain unable to obtain Allergy/AdvReac Type Severity Reaction Status Date / Time Unable to Assess Allergy Verified 12/20/24 15:50 Family History unable to obtain unable to obtain Surgical History unable to obtain unable to obtain Social History Smoking Status: Unknown if ever smoked Homelessness:: Unspecified ROS ROS ED Review of Systems ROS Unobtainable: due to mental status EXAM Physical Exam Const Vital Signs: 12/20/24 15:51 12/20/24 15:55 12/20/24 16:50 Temperature 98.1 F Temperature Source Temporal Pulse Rate 75 Respiratory Rate 12 Respiratory Effort Normal Respiratory Pattern Normal Blood Pressure 136/85 H 131/86 H Blood Pressure Mean 102 101 Pulse Ox 99 Oxygen Delivery Method 12/20/24 17:00 12/20/24 17:30 Temperature 97.6 F L Temperature Source Temporal Pulse Rate 81 62 Respiratory Rate 17 18 Respiratory Effort Respiratory Pattern Blood Pressure Blood Pressure Mean Pulse Ox 100 92 Oxygen Delivery Method Room Air Positive well nourished and well developed General Appearance ED: well developed and NAD HEENT Reports normocephalic, head/scalp atraumatic and moist mucous membranes HEENT Narrative: When I check gag reflex using tongue depressor the patient bites down on the tongue depressor and brings his arms up to try to grab them. Eyes Eyes Narrative: Pupils are 2 mm bilaterally. He appears to have a left upward look to the eyes. There is mild conjunctival injection. They are reactive. Neck no lymphadenopathy, supple and no JVD Resp normal respiratory effort and clear to auscultation bilaterally Cardio regular rate, regular rhythm and no murmurs GI normal to inspection, nondistended, normoactive bowel sounds and non-tender Palpation: soft Back/Spine no CVA tenderness and normal ROM Extremity normal to inspection General Extremety ED: Negative for edema General Extremity: Negative for edema Neuro Neuro Narrative: Purposeful movement to gag reflex Sensorium / Orientation: stuporous Skin no rashes or lesions noted and no wounds MDM MDM MDM Narrative Medical decision making narrative: Broad-based differential diagnosis includes but not limited to intracranial hemorrhage stroke alcohol intoxication drug intoxication/toxidrome Abnormalitiesdehydration sepsis infection EKG shows a normal sinus rhythm with a ventricular rate of 69 bpm. ABG shows a pH of 7.325 pCO2 43.8 PaO2 of 113.9 bicarb 22.8. My independent interpretation of the chest x-ray is no acute process. CT of the brain was obtained read by radiology reviewed myself. This does not demonstrate anything acute. White count returns at 5.6 hemoglobin 14.2 platelet count of 218. Normal coags. BMP shows a glucose of 102 anion gap of 12. CO2 of 21 lactic acid is elevated 2.1 magnesium 2.4 normal LFTs troponin is 6 lipase is 53. Toxicology demonstrates an alcohol level of 401. Urine tox is negative. Urinalysis shows no acute infection Patient is able to be sternal rub now to the point where he can tell us a date of and name. We allow him to metabolize the alcohol until he is more coherent and clinically sober and able to assist us in finding him a ride home. We will reassess him when able to participate in the exam History & Record Review Discussion w/independent historian: EMS personnel Lab Data Attestation: I reviewed the patient's lab results. Labs: Laboratory Results - last 24 hr 12/20/24 12/20/24 16:00 16:10 WBC 5.6 RBC 4.62 Hgb 14.2 Hct 41.8 MCV 90.5 MCH 30.7 MCHC 34.0 RDW Std Deviation 45.1 H RDW Coeff of Paramjit 13.5 Plt Count 218 MPV 9.5 Immature Gran % (Auto) 0.200 Neut % (Auto) 36.1 L Lymph % (Auto) 49.9 H [place] % (Auto) 10.2 H Eos % (Auto) 3.2 Baso % (Auto) 0.4 Absolute Neuts (auto) 2.0 Absolute Lymphs (auto) 2.79 Nucleated RBC % 0 PT 12.9 INR 1.0 APTT 31.0 Sodium 136 Potassium 3.6 Chloride 103 Carbon Dioxide 21.1 Anion Gap 12 BUN 8 Creatinine 0.94 Estim Creat Clear Calc 80.26 Est GFR (MDRD) Non-Af 88 BUN/Creatinine Ratio 8.3 L Glucose 102 H Lactic Acid 2.1 H Calcium 8.6 Magnesium 2.4 H Total Bilirubin 0.20 Direct Bilirubin 0.09 AST 20 ALT 11 Alkaline Phosphatase 73 Troponin T High Sens 6 Total Protein 7.1 Albumin 3.8 Globulin 3.4 Lipase 53 Urine Color Yellow Urine Clarity Clear Urine pH 6.0 Ur Specific [place] 1.005 Urine Protein Negative Urine Glucose (UA) Normal Urine Ketones Negative Urine Occult Blood 10 H Urine Nitrite Negative Urine Bilirubin Negative Urine Urobilinogen Normal Ur Leukocyte Esterase Negative Urine RBC 0-5 SEEN Urine WBC 0-5 SEEN Ur Squamous Epith Cells 0-5 SEEN Ur Transition Epith Cell 0-5 SEEN Urine Bacteria RARE Urine Mucus 0 SEEN Urine Opiates Screen NEGATIVE U Buprenorphine Qual NEGATIVE Ur Oxycodone Screen NEGATIVE Urine Methadone Screen NEGATIVE Urine Fentanyl Screen NEGATIVE Ur Barbiturates Screen NEGATIVE Ur Phencyclidine Scrn NEGATIVE Ur Amphetamines Screen NEGATIVE U Benzodiazepines Scrn NEGATIVE Urine Cocaine Screen NEGATIVE U Cannabinoids Screen NEGATIVE Ethyl Alcohol 401.0 H* ABG Data ABG results: ABG 12/20/24 16:01 Specimen Type ART Sample Site L Radial pH 7.33 L Bicarbonate Actual 22.8 Total CO2 24 Base Excess -3 L O2 Saturation 98 O2 % 2.0 ABG pCO2 43.8 ABG pO2 114 H Jeramy Test Positive O2 Delivery Device Cannula Vent Mode Not entered Radiography Diagnostic Testing: Clinical Impression(s) from Imaging Studies Brain CT 12/20/24 15:56 IMPRESSION: 1. No visible intracranial hemorrhage. Mild patchy supratentorial white matter abnormalities, potentially reflecting chronic microvascular ischemic changes however this is not definite in the absence of priors to confirm stability, technically age indeterminate. If there is persistent concern, recommend MRI. 2. Additional description as above. Reading Location: [facility] Chest X-Ray 12/20/24 16:40 IMPRESSION: 1. Limited hypoinflated exam. Mild right basilar airspace disease, atelectasis/scarring versus mild pneumonia. Follow-up to radiographic resolution. 2. Trace basilar interstitial prominence may reflect minimal edema/pneumonitis or a chronic interstitial abnormality in the absence of priors. 3. Additional description as above. Reading Location: [facility] Discharge Plan Triage Chief Complaint: Unresponsive ED Provider: Kale Kitchen Dx/Rx/DC Orders Clinical Impression: Alcohol intoxication, Unresponsive episode Instructions: ED Alcohol Intoxication Primary Care Provider: Care Physician,No Primary Referrals: Care Physician,No Primary [Primary Care Provider] - [facility] [Non-Staff] - As soon as possible (for help with your alcohol problem) Print Language: Faroese What to do if you have Problems For any increased pain, shortness of breath, bleeding, nausea or vomiting, chestpain, or any unexpected problems, contact your Primary Care Provider. Call [facility] ([phone]) or report to the closest Emergency Room. Call 911 if necessary. 12/21/24 000 <Electronically signed by Kale Kitchen DO> Cosigner Signature (if applicable): CC: [facility] ~ Signed [facility] Work Phone: Evaluation note Note Date & Type Note Facility Evaluation note No assessment information availa ble [facility] Work Phone: Reason for referral (narrative) Note Date & Type Note Facility Reason for referral (narrative) No reason for referral information available [facility] Work Phone: Summary Purpose Family History No Family History Records FoundNo Family History Records FoundNo Family History Records Found Advance Directives Documents on File Type Date Recorded Patient Lozenge Dough Mixer Expl anation ACP-Advance Directive ACP-Power of Programmer Numerical Control Advance Directive Response Recorded Date/ Time Do you have a Healthcare Power of Programmer Numerical Control? No May 10, 2025 3:41pm Chief Complaint and Reason for Visit Chief Complaint Admit Date UNRESPONSIVE December 20, 2024 3:4 9pm Chief Complaint Admit Date ALTERED MENTAL May 10, 2025 3:3 4pm Additional Source Comments (unrecognized sect ion and content) No Status Records FoundNo Status Records FoundNo Status Records Found INFORMATION SOURCE (unrecogn ized section and content) DATE CREATED AUTHOR 08/31/2021 [facility] DATE CREATED AUTHOR AUTHOR'S ORGANIZ ATION 11/20/2021 [facility] DATE CREATED AUTHOR AUTHOR'S ORGANIZ ATION [facility] Care Teams (unrecognized sec tion and content) Team Status: Active Member Role Status Dates [facility] Primary Care Provider Active Team Status: Inactive Member Role Status Dates Dr. Kale Kitchen , Emergency Provider Active Start: December 20, 2024 End: December 21, 2024 [facility] Primary [facility] Provider Active Start: December 20, 2024 End: December 21, 2024 Team Status: Active Member Role/Relationship Status Dates [facility] Provider Active Team Status: Inactive Member Role/Relationship Status Dates [facility] Primary [facility] Provider Active Start: May 10, 2025 End: May 10, 2025 Dr. Karel Fuentes , Emergency Provider Active Start: May 10, 2025 End: May 10, 2025 Goals (unrecognized section and content) Goals may be documented in a n alternate sectionGoals may be documented in an alternate section FOR RECORDS PERTAINING TO PATIENTS WHO ARE OR HAVE BEEN ENROLLED IN A CHEMICAL DEPENDENCY/SUBSTANCEABUSE PROGRAM, SOME INFORMATION MAY BE OMITTED. This clinical summary was aggregated from multiple sources. Caution should be exercised in using it in the provision of clinical care. This summary normalizes information from multiple sources, and as a consequence, information in this document may materially change the coding, format and clinical context of patient data. In addition, data may be omitted in some cases. CLINICAL DECISIONS SHOULD BE BASED ON THE PRIMARY CLINICAL RECORDS. [facility] provides no warranty or guarantee of the accuracy or completeness of information in this document.
== END 2025-05-10 19:06 | disposition left against medical advice (07) ==
PROVIDERS: Emergency Provider Emergency Medicine; Visit Provider Emergency Medicine
DX: F10.129 Alcohol abuse with intoxication, unspecified (principal); R40.4 Transient alteration of awareness
CPT/HCPCS: 70450; 80053; 85025; 93005; 96360; 96361; 99285